=== PATIENT | male | born 1955 | race Caucasian/White ===

== ENCOUNTER 2016-08-18 11:59 | Outpatient (RCR) | payer MEDICAID ==
--- OUTSIDE RECORDS SUMMARY | 2016-05-26 14:13 | XMS REPORT | Continuity of Care Document ---
Author Author [facility] Organization [facility] Address Unknown Phone Unavailable Care Team Providers Care Formulator Compounder Name Role Phone PCP Unavailable Source Comments Some departments are not documenting in the electronic medical record. If you do not see the information that you expected, contact Release of Information in the Health Information Management department at [phone] for further assistance in locating additional records.[facility] Active Allergies and Adverse Reactions Allergen Noted Date Severity Reactions Comments Pcn 10/16/2015 Medium RASH Current Medications Prescription Sig. Disp. Refills Start End Date Status Date dabrafenib (TAFINLAR) 75 Take 150 mg by mouth Active mg capsule twice daily. Take on an empty stomach, at least 1 hour before or 2 hours after food. canagliflozin-metformin Take by mouth. Active 150-1,000 mg tab metFORMIN (GLUCOPHAGE) Take 500 mg by mouth Active 500 mg tablet daily. meloxicam (MOBIC) 15 mg Take by mouth daily. Active tablet atorvastatin (LIPITOR) 20 Take 20 mg by mouth Active mg tablet daily. trametinib 2 mg tab Take 2 mg by mouth daily. Active Take at the same time every day. Active Problems Problem Noted Date Melanoma (HCC) 10/19/2015 Social History Tobacco Use Types Packs/Day Years Used Date Never Smoker Smokeless Tobacco: Never Used Alcohol Use Drinks/Week oz/Week Comments No Last Filed Vital Signs Vital Sign Reading Time Taken Blood Pressure 140/80 10/16/2015 12:47 PM LIFE ENRICHMENT MANAGER Pulse 98 10/16/2015 12:47 PM LIFE ENRICHMENT MANAGER Temperature - - Respiratory Rate - - Height 1.753 m (5' 9") 10/16/2015 12:47 PM LIFE ENRICHMENT MANAGER Weight 77.293 kg (170 lb 6.4 oz) 10/16/2015 12:47 PM LIFE ENRICHMENT MANAGER Body Mass Index 25.15 10/16/2015 12:47 PM LIFE ENRICHMENT MANAGER Oxygen Saturation - - Plan of Care Health Maintenance Due Date Last Done Comments Physical (Comprehensive) 1962 Exam Pertussis Vaccine 1964 Tetanus Vaccine 1970 Colorectal Cancer 10/29/2003 Screening Shingles Vaccine 2013 Influenza Vaccine 04/14/2016 Results from Last 3 Months Not on file
[2016-05-26 14:29] LABS: BASOPHILS % (AUTO) 1 % (0-10); EOSINOPHILS # (AUTO) 0.3 10^3/uL (0.0-0.3); EOSINOPHILS % (AUTO) 4 % (0-10); LYMPHOCYTES # (AUTO) 1.2 X 10^3 (1.0-4.0); LYMPHOCYTES % (AUTO) 17 % (12-44); MEAN CORPUSCULAR HEMOGLOBIN 31 PG (25-34); MEAN CORPUSCULAR HGB CONC 34 G/DL (32-36); MEAN CORPUSCULAR VOLUME 92 FL (80-99); MEAN PLATELET VOLUME 8.2 FL (7.4-10.4); MONOCYTES # (AUTO) 0.9 X 10^3 (0.0-1.0); MONOCYTES % (AUTO) 12 % (0-12); NEUTROPHILS # (AUTO) 4.8 X 10^3 (1.8-7.8); NEUTROPHILS % (AUTO) 67 % (42-75); PLATELET COUNT 294 10^3/uL (130-400); RED BLOOD COUNT 4.63 10^6/uL (4.35-5.85); RED CELL DISTRIBUTION WIDTH 13.8 % (10.0-14.5); WHITE BLOOD COUNT 7.2 10^3/uL (4.3-11.0)
[2016-05-26 15:01] LABS: ALANINE AMINOTRANSFERASE 12 U/L (0-55); ALBUMIN 4.1 G/DL (3.2-4.5); ANION GAP 8 MMOL/L (5-14); ASPARTATE AMINO TRANSFERASE 12 U/L (5-34); BILIRUBIN,TOTAL 0.5 MG/DL (0.1-1.0); BLOOD UREA NITROGEN 15 MG/DL (7-18); BUN/CREATININE RATIO 15; CALCIUM 9.4 MG/DL (8.5-10.1); CARBON DIOXIDE 29 MMOL/L (21-32); CHLORIDE 99 MMOL/L (98-107); CREATININE SERUM 1.03 MG/DL (0.60-1.30); GFR ESTIMATED > 60; GLUCOSE 181 MG/DL (70-105); LACTATE DEHYDROGENASE 150 U/L (125-220); POTASSIUM 4.6 MMOL/L (3.6-5.0); SODIUM 136 MMOL/L (135-145); TOTAL PROTEIN 7.3 G/DL (6.4-8.2)
[2016-07-05 14:22] LABS: BASOPHILS % (AUTO) 1 % (0-10); EOSINOPHILS # (AUTO) 0.1 10^3/uL (0.0-0.3); EOSINOPHILS % (AUTO) 3 % (0-10); LYMPHOCYTES # (AUTO) 0.9 X 10^3 (1.0-4.0); LYMPHOCYTES % (AUTO) 19 % (12-44); MEAN CORPUSCULAR HEMOGLOBIN 32 PG (25-34); MEAN CORPUSCULAR HGB CONC 34 G/DL (32-36); MEAN CORPUSCULAR VOLUME 93 FL (80-99); MEAN PLATELET VOLUME 8.7 FL (7.4-10.4); MONOCYTES # (AUTO) 0.7 X 10^3 (0.0-1.0); MONOCYTES % (AUTO) 15 % (0-12); NEUTROPHILS % (AUTO) 63 % (42-75); PLATELET COUNT 191 10^3/uL (130-400); RED BLOOD COUNT 4.64 10^6/uL (4.35-5.85); RED CELL DISTRIBUTION WIDTH 13.6 % (10.0-14.5); WHITE BLOOD COUNT 4.7 10^3/uL (4.3-11.0)
[2016-07-05 15:17] LABS: ALANINE AMINOTRANSFERASE 15 U/L (0-55); ANION GAP 6 MMOL/L (5-14); ASPARTATE AMINO TRANSFERASE 28 U/L (5-34); BILIRUBIN,TOTAL 0.5 MG/DL (0.1-1.0); BLOOD UREA NITROGEN 17 MG/DL (7-18); BUN/CREATININE RATIO 15; CALCIUM 9.9 MG/DL (8.5-10.1); CARBON DIOXIDE 29 MMOL/L (21-32); CHLORIDE 102 MMOL/L (98-107); CREATININE SERUM 1.17 MG/DL (0.60-1.30); GFR ESTIMATED > 60; GLUCOSE 175 MG/DL (70-105); LACTATE DEHYDROGENASE 312 U/L (125-220); POTASSIUM 4.8 MMOL/L (3.6-5.0); SODIUM 137 MMOL/L (135-145); TOTAL PROTEIN 7.1 G/DL (6.4-8.2)
[~2016-08-18 11:59] MED LIST changes: -ATOR20TA66 PO; -BARIUM SUSPENSION 2.1% (VANILLA SILQ) 450 ML PO ONE; -CANA1TAB4 PO; -CATHETER FLUSH 10 ML SYR IV PRN; -FLUT9.9S NS; -GLIP10TA13 PO; -HEParin (CENTRAL IV FLUSH) 500 UNIT/5 ML SYR ONE; -IOHEXOL 350 MG/ML 100 ML (OMNIPAQUE 350) VIAL IV ONE; -MELO15TA39 PO; -METF500T4 PO; -NS 100 ML (IVPB) BAG IV ONE; -TRAM50TA2 PO
[2016-08-18 12:26] LABS: BASOPHILS % (AUTO) 1 % (0-10); EOSINOPHILS # (AUTO) 0.1 10^3/uL (0.0-0.3); EOSINOPHILS % (AUTO) 2 % (0-10); LYMPHOCYTES % (AUTO) 16 % (12-44); MEAN CORPUSCULAR HEMOGLOBIN 32 PG (25-34); MEAN CORPUSCULAR HGB CONC 35 G/DL (32-36); MEAN CORPUSCULAR VOLUME 93 FL (80-99); MEAN PLATELET VOLUME 8.2 FL (7.4-10.4); MONOCYTES % (AUTO) 16 % (0-12); NEUTROPHILS % (AUTO) 65 % (42-75); PLATELET COUNT 275 10^3/uL (130-400); RED BLOOD COUNT 4.75 10^6/uL (4.35-5.85); RED CELL DISTRIBUTION WIDTH 13.7 % (10.0-14.5); WHITE BLOOD COUNT 6.1 10^3/uL (4.3-11.0)
[2016-08-18 12:57] LABS: ALANINE AMINOTRANSFERASE 17 U/L (0-55); ALBUMIN 4.2 G/DL (3.2-4.5); ANION GAP 8 MMOL/L (5-14); ASPARTATE AMINO TRANSFERASE 20 U/L (5-34); BILIRUBIN,TOTAL 0.5 MG/DL (0.1-1.0); BLOOD UREA NITROGEN 16 MG/DL (7-18); BUN/CREATININE RATIO 14; CALCIUM 9.9 MG/DL (8.5-10.1); CARBON DIOXIDE 26 MMOL/L (21-32); CHLORIDE 102 MMOL/L (98-107); CREATININE SERUM 1.16 MG/DL (0.60-1.30); GFR ESTIMATED > 60; GLUCOSE 178 MG/DL (70-105); LACTATE DEHYDROGENASE 180 U/L (125-220); POTASSIUM 5.1 MMOL/L (3.6-5.0); SODIUM 136 MMOL/L (135-145); TOTAL PROTEIN 7.2 G/DL (6.4-8.2)
[2016-12-02] MEDS ORDERED: TRAM50TA2 PO (08:20)
== END 2016-08-24 | disposition home or self-care (01) ==
LOC: ONC 11:59
PROVIDERS: ATTEND Internal Medicine Hematology & Oncology
DX: C43.59 Malignant melanoma of other part of trunk (principal); C78.7 Secondary malignant neoplasm of liver and intrahepatic bile duct; C77.9 Secondary and unspecified malignant neoplasm of lymph node, unspecified; Z79.899 Other long term (current) drug therapy
CPT/HCPCS: 36415; 80053; 83615; 85025; 99213

== ENCOUNTER → 2016-08-18 | Outpatient (CLI) | payer MEDICAID ==
[~2016-08-18] MED LIST: ASPI-587 PO; ATOR20TA66 PO; BARIUM SUSPENSION 2.1% (VANILLA SILQ) 450 ML PO ONE; CANA1TAB4 PO; CATHETER FLUSH 10 ML SYR IV PRN; CPR500T PO; FLUT9.9S NS; GLIP10TA13 PO; HEParin (CENTRAL IV FLUSH) 500 UNIT/5 ML SYR ONE; HYDR-34 PO; IBUP200T48 PO; IOHEXOL 350 MG/ML 100 ML (OMNIPAQUE 350) VIAL IV ONE; MELO15TA39 PO; METF500T4 PO; NS 100 ML (IVPB) BAG IV ONE; OXYC1TAB87 PO; TRAM50TA2 PO
--- OUTSIDE RECORDS SUMMARY | 2016-08-18 12:48 | XMS REPORT | Continuity of Care Document ---
Author Author [facility] Organization [facility] Address Unknown Phone Unavailable Care Team Providers Care Refrigerator Glazier Name Role Phone PCP Unavailable Source Comments Some departments are not documenting in the electronic medical record. 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 TRUCK OPERATOR Pulse 98 10/16/2015 12:47 PM TOW TRUCK OPERATOR Temperature - - Respiratory Rate - - Height 1.753 m (5' 9") 10/16/2015 12:47 PM TOW TRUCK OPERATOR Weight 77.293 kg (170 lb 6.4 oz) 10/16/2015 12:47 PM TOW TRUCK OPERATOR Body Mass Index 25.15 10/16/2015 12:47 PM TOW TRUCK OPERATOR Oxygen Saturation - - Plan of Care Health Maintenance Due Date Last Done Comments Hepatitis C Screening 1955 Physical (Comprehensive) 1960 Exam Pertussis Vaccine 1964 Tetanus Vaccine 1970 Colorectal Cancer 10/29/2003 Screening Shingles Vaccine 2013 Influenza Vaccine 04/14/2016 Results from Last 3 Months Not on file
--- NOTE | 2016-08-18 14:31 | Diagnostic Imaging Report ---
PROCEDURE: CT chest and abdomen with contrast. TECHNIQUE: Multiple contiguous axial images were obtained through the chest and abdomen after the administration of intravenous contrast. INDICATION: History of melanoma. Exam compared 02/23/2016. FINDINGS: Chest: There is no lung nodule. There is no thoracic adenopathy. No infiltrate, effusion or failure pattern. No acute or suspicious soft tissue or osseous chest wall disease. No change. Abdomen: The liver is stable and negative. The gallbladder and bile ducts normal. The spleen, adrenals, pancreas unremarkable. The kidneys showed a stable benign unilocular Bosniak I left renal cortical cyst and no obstruction or acute finding. There is no mesenteric or retroperitoneal adenopathy. There are no obstructive features. No ascites or fluid collection. There is no suspicious osseous disease. IMPRESSION: Stable CT evaluations chest and abdomen showed no acute finding or evidence for metastasis. Dictated by: Dictated on workstation # [id number]
--- NOTE | 2016-08-18 15:42 | Diagnostic Imaging Report ---
MUGA scan Technique: After the intravenous administration of 29.8 mCi of technetium 99m tagged red blood cells intravenously, images are obtained over the cardiac region in left lateral, anterior and ALGERIAN and VEGA views. Indication: Evaluate ejection fraction. Cardiotoxic chemotherapy , for melanoma. FINDINGS: Area of interest around the left ventricle is drawn and the ejection fraction is estimated based on radiotracer activity at 59%. This compares to ejection fraction of 56% on 02/23/16. IMPRESSION: Ejection fraction is 59%. Dictated by: Dictated on workstation # [id number]
== END ==
LOC: RAD 12:45
PROVIDERS: ATTEND Nurse Practitioner Adult Health
DX: C43.59 Malignant melanoma of other part of trunk (principal); C77.8 Secondary and unspecified malignant neoplasm of lymph nodes of multiple regions; C79.89 Secondary malignant neoplasm of other specified sites; C78.7 Secondary malignant neoplasm of liver and intrahepatic bile duct
CPT/HCPCS: 71260; 74160; 78472

== ENCOUNTER 2016-10-24 14:41 | Outpatient (RCR) | payer MEDICAID ==
--- OUTSIDE RECORDS SUMMARY | 2016-08-31 12:59 | XMS REPORT | Continuity of Care Document ---
Author Author [facility] Organization [facility] Address Unknown Phone Unavailable Care Team Providers Care Hand Stapler Name Role Phone PCP Unavailable Source Comments Some departments are not documenting in the electronic medical record. If you do not see the information that you expected, contact Release of Information in the Health Information Management department at [phone] for further assistance in locating additional records.[facility] Active Allergies and Adverse Reactions Allergen Noted [...] Taken Blood Pressure 140/80 10/16/2015 12:47 PM GOLF BALL MOLDER Pulse 98 10/16/2015 12:47 PM GOLF BALL MOLDER Temperature - - Respiratory Rate - - Height 1.753 m (5' 9") 10/16/2015 12:47 PM GOLF BALL MOLDER Weight 77.293 kg (170 lb 6.4 oz) 10/16/2015 12:47 PM GOLF BALL MOLDER Body Mass Index 25.15 10/16/2015 12:47 PM GOLF BALL MOLDER Oxygen Saturation - - Plan of Care Health Maintenance Due Date Last Done Comments Hepatitis C Screening 1955 Physical (Comprehensive) 1960 Exam Pertussis Vaccine 1964 Tetanus Vaccine 1970 Colorectal Cancer 10/29/2003 Screening Shingles Vaccine 2013 Influenza Vaccine 04/14/2016 Results from Last 3 Months Not on file
[2016-10-24 14:56] LABS: BASOPHILS % (AUTO) 1 % (0-10); EOSINOPHILS # (AUTO) 0.3 10^3/uL (0.0-0.3); EOSINOPHILS % (AUTO) 5 % (0-10); LYMPHOCYTES # (AUTO) 1.4 X 10^3 (1.0-4.0); LYMPHOCYTES % (AUTO) 24 % (12-44); MEAN CORPUSCULAR HEMOGLOBIN 32 PG (25-34); MEAN CORPUSCULAR HGB CONC 34 G/DL (32-36); MEAN CORPUSCULAR VOLUME 93 FL (80-99); MEAN PLATELET VOLUME 8.1 FL (7.4-10.4); MONOCYTES # (AUTO) 0.8 X 10^3 (0.0-1.0); MONOCYTES % (AUTO) 13 % (0-12); NEUTROPHILS # (AUTO) 3.3 X 10^3 (1.8-7.8); NEUTROPHILS % (AUTO) 58 % (42-75); PLATELET COUNT 225 10^3/uL (130-400); RED BLOOD COUNT 4.27 10^6/uL (4.35-5.85); WHITE BLOOD COUNT 5.7 10^3/uL (4.3-11.0)
[2016-10-24 15:29] LABS: ALANINE AMINOTRANSFERASE 20 U/L (0-55); ALBUMIN 3.8 G/DL (3.2-4.5); ANION GAP 9 MMOL/L (5-14); ASPARTATE AMINO TRANSFERASE 20 U/L (5-34); BILIRUBIN,TOTAL 0.4 MG/DL (0.1-1.0); BLOOD UREA NITROGEN 16 MG/DL (7-18); BUN/CREATININE RATIO 14; CALCIUM 9.5 MG/DL (8.5-10.1); CARBON DIOXIDE 25 MMOL/L (21-32); CHLORIDE 103 MMOL/L (98-107); CREATININE SERUM 1.11 MG/DL (0.60-1.30); GFR ESTIMATED > 60; GLUCOSE 137 MG/DL (70-105); LACTATE DEHYDROGENASE 185 U/L (125-220); POTASSIUM 4.8 MMOL/L (3.6-5.0); SODIUM 137 MMOL/L (135-145); TOTAL PROTEIN 6.7 G/DL (6.4-8.2)
[2016-11-28] MEDS ORDERED: CANA1TAB4 PO (15:14)
[2016-11-28] MEDS ORDERED: FLUT9.9S NS (15:14)
[2016-11-28] MEDS ORDERED: MELO15TA39 PO (15:14)
[2016-11-28] MEDS ORDERED: METF500T4 PO (15:14)
[2016-11-28] MEDS ORDERED: ATOR20TA66 PO (15:14)
[2016-11-28] MEDS ORDERED: GLIP10TA13 PO (15:14)
[2016-12-02] MEDS ORDERED: TRAM50TA2 PO (08:20)
== END 2016-11-29 | disposition home or self-care (01) ==
LOC: ONC 14:41
PROVIDERS: ATTEND Internal Medicine Hematology & Oncology
DX: C43.59 Malignant melanoma of other part of trunk (principal); C78.7 Secondary malignant neoplasm of liver and intrahepatic bile duct; C77.9 Secondary and unspecified malignant neoplasm of lymph node, unspecified; Z79.899 Other long term (current) drug therapy
CPT/HCPCS: 36415; 80053; 83615; 85025; 99213

== ENCOUNTER → 2016-11-25 | Outpatient (CLI) | payer MEDICAID ==
[~2016-11-25] VITALS: Ht 175.3 cm; Wt 74.9 kg
[~2016-11-25] MED LIST changes: +ATOR20TA66 PO; +CANA1TAB4 PO; +FLUT9.9S NS; +GLIP10TA13 PO; +MELO15TA39 PO; +METF500T4 PO; +TRAM50TA2 PO
== END ==
LOC: PREOP 05:34
PROVIDERS: ATTEND Surgery
DX: Z01.818 Encounter for other preprocedural examination (principal); L98.9 Disorder of the skin and subcutaneous tissue, unspecified; Z85.820 Personal history of malignant melanoma of skin

== ENCOUNTER 2016-12-02 06:11 | Day surgery (SDC) | payer MEDICAID ==
[~2016-12-02] VITALS: Ht 175.3 cm; Wt 74.9 kg
[~2016-12-02 06:11] MED LIST changes: -TRAM50TA2 PO
[2016-12-02] MEDS ORDERED: VANCOMYCIN 1000 MG/VIAL ONE (06:37)
[2016-12-02] MEDS ORDERED: NS (IVPB) 250 ML ONE (06:37)
[2016-12-02] MEDS ORDERED: LACTATED RINGERS 1,000 ML IV PRN (06:40)
[2016-12-02] MEDS ORDERED: CATHETER FLUSH 10 ML SYR IV PRN (07:00)
[2016-12-02] MEDS ORDERED: VANCOMYCIN 1 GM/NS 250 ML IVPB IV ONE ×2 (07:00)
[2016-12-02 07:09] VITALS: BP 108/104
[2016-12-02] MEDS ORDERED: BUP/EPI 0.25% 1:200,000 (MARCAINE) 30 ML VIAL ONE (07:09)
--- NOTE | 2016-12-02 07:34 | Progress Note-Pre Operative ---
Pre-Operative Progress Note H&P Reviewed The H&P was reviewed, patient examined and no changes noted. Date H&P Reviewed: Dec 02, 2016 Time H&P Reviewed: 07:34 Pre-Operative Diagnosis: Skin lesion-right infraclavicular region JESSICA AMBROSE MD Dec 02, 2016 7:34 am
[2016-12-02] MEDS ORDERED: PROPOFOL INJECTION 50 ML IV ONE ×2 (07:35→08:38)
[2016-12-02] MEDS ORDERED: MIDAZOLAM 2 MG/2 ML (VERSED) VIAL ONE (07:36)
--- NOTE | 2016-12-02 08:19 | Progress Note-Post Operative ---
Post-Operative Progess Note Surgeon (s)/Fire Apparatus Engineer (s) Surgeon JESSICA AMBROSE MD Fire Apparatus Engineer: Whit Torres Pre-Operative Diagnosis Skin lesion-right infraclavicular region Post-Operative Diagnosis Same Post-Op Procedure Note Date of Procedure: Dec 02, 2016 Name of Procedure Performed: Excision with frozen section Description of the Procedure: See operative report Findings of the Procedure See operative report Anesthesia Type Sedation with local Estimated blood loss (mL): Minimal Specimen(s) collected/removed Skin lesion JESSICA AMBROSE MD Dec 02, 2016 8:19 am
[2016-12-02] MEDS ORDERED: TRAM50TA2 PO (08:20)
--- NOTE | 2016-12-02 08:22 | Discharge Inst-Simple/Standard ---
Discharge Inst-Standard Discharge Medications New, Converted or Re-Newed RX: RX on Chart Patient Instructions/Follow Up Plan of Care/Instructions/FU: Dressing off in 48 hours. Follow-up with my nurse in 10 days for suture removal Activity as Tolerated: Yes Discharge Diet: No Restrictions JESSICA AMBROSE MD Dec 02, 2016 8:22 am
[2016-12-02] MEDS ORDERED: BUP/EPI 0.25% 1:200,000 (MARCAINE) 30 ML VIAL INJ ONE (08:30)
[2016-12-02] MEDS ORDERED: LACTATED RINGERS 1,000 ML IV ONE (08:38)
[2016-12-02] MEDS ORDERED: GLYCOPYRROLATE 0.2 MG/ML (ROBINUL) 2 ML VIAL ONE (08:39)
[2016-12-02 09:15] VITALS: BP 144/89
[2016-12-02 09:45] VITALS: BP 159/91
[2016-12-02 10:35] VITALS: BP 159/91
--- NOTE | 2016-12-02 15:55 | OPERATIVE REPORT ---
DATE OF SERVICE: 12/02/2016 PREOPERATIVE DIAGNOSIS: A 2 cm skin lesion - right infraclavicular fossa. POSTOPERATIVE DIAGNOSIS: A 2 cm nodular basal cell carcinoma, right infraclavicular region. OPERATION: Excision with frozen section. SURGEON: Dr. Ambrose. ANESTHESIA: Sedation with local. BLOOD LOSS: Minimal. FLUIDS: 400 mL of Crystalloid. TYPE OF WOUND: Type 1 (clean wound). INDICATION FOR PROCEDURE: This gentleman presented with a raised and ulcerated lesion over the right infraclavicular fossa, measuring about 2 cm in diameter, having the appearance of a basal cell carcinoma. He was offered excision under monitored conditions under local anesthetic to establish a definitive diagnosis and ensure negative margins, should carcinoma be confirmed. Informed consent was obtained after reviewing the procedure in detail. DESCRIPTION OF PROCEDURE: He was placed supine on the operating room tablet and CRN administered sedation, monitoring his vital signs. There was 1 gram of Vancomycin administered intravenously as prophylaxis against wound infection. The area was prepared and draped in the usual sterile manner. Local anesthesia was achieved using 0.25% Marcaine with epinephrine. An elliptical incision 4 cm long x 3 cm wide was made over the right infraclavicular fossa and the lesion excised down to the subcutaneous tissue. It was oriented with silk sutures and sent for frozen section analysis. ____ , our pathologist, confirmed a basal cell carcinoma with negative margins. Hemostasis was achieved using cautery and the edges of the incision were approximated with interrupted 4-0 nylon sutures. A nonadherent dressing was then applied. He tolerated the procedure well and was taken back to a nursing area in stable condition. [place], sponges and instruments were correct at the end of the operation. Job ID: [id number] DocumentID: [id number] Dictated Date: 12/02/2016 08:44:15 Secondary School Teacher Date: 12/02/2016 09:17:55 Dictated By: JESSICA AMBROSE MD
== END 2016-12-02 10:35 | disposition home or self-care (01) ==
LOC: SDC 06:11
PROVIDERS: ATTEND Surgery
DX: C44.519 Basal cell carcinoma of skin of other part of trunk (principal); E11.9 Type 2 diabetes mellitus without complications; Z79.84 Long term (current) use of oral hypoglycemic drugs
CPT/HCPCS: 82962; 87081; 88305; 88331; 88332

== ENCOUNTER → 2017-02-10 | Outpatient (CLI) | payer MEDICAID ==
[~2017-02-10] MED LIST changes: +TRAM50TA2 PO
[2017-02-10 14:53] LABS: THYROID STIMULATING HORMONE 1.92 UIU/ML (0.35-4.94)
== END ==
LOC: LAB 13:46
PROVIDERS: ATTEND Nurse Practitioner Family
DX: R53.83 Other fatigue (principal); E78.5 Hyperlipidemia, unspecified; E11.9 Type 2 diabetes mellitus without complications; N40.0 Benign prostatic hyperplasia without lower urinary tract symptoms
CPT/HCPCS: 36415; 80061; 83036; 84153; 84443

== ENCOUNTER → 2017-02-16 | Outpatient (CLI) | payer MEDICAID ==
[~2017-02-16] MED LIST changes: +CATHETER FLUSH 10 ML SYR IV PRN; +HEParin (CENTRAL IV FLUSH) 500 UNIT/5 ML SYR ONE; +IOHEXOL 350 MG/ML 100 ML (OMNIPAQUE 350) VIAL IV ONE; +NS 100 ML (IVPB) BAG IV ONE
--- NOTE | 2017-02-16 15:17 | Diagnostic Imaging Report ---
MUGA scan Technique: After the intravenous administration of 32 mCi of technetium 99m tagged red blood cells intravenously, images are obtained over the cardiac region in left lateral, anterior and MOHAWK and VEGA views. Indication: Evaluate ejection fraction. Cardiotoxic chemotherapy . Melanoma. FINDINGS: Area of interest around the left ventricle is drawn and the ejection fraction is estimated based on radiotracer activity at 55%. This compares to ejection fraction of 59% on 08/18/2016 IMPRESSION: Ejection fraction is 55%. Dictated by: Dictated on workstation # [id number]
--- NOTE | 2017-02-16 16:03 | Diagnostic Imaging Report ---
PROCEDURE: CT chest and abdomen with contrast. TECHNIQUE: Multiple contiguous axial images were obtained through the chest and abdomen after the administration of intravenous contrast. INDICATION: Melanoma. 100 mL of Omnipaque 350 is administered intravenously. COMPARISON: 08/18/2016. FINDINGS: CT chest: The lungs demonstrate no significant consolidation, mass, or suspicious nodule. The heart size is normal. The thoracic aorta is normal in caliber. There is no mediastinal mass. No lymphadenopathy in the mediastinum, augusto, or in the axillae. No pericardial or pleural effusion. The osseous structures demonstrate mild degenerative change in the lower thoracic spine. CT abdomen: The liver, the spleen, the adrenal glands, and the pancreas appear unremarkable. The gallbladder is mildly contracted with no calcified stone or evidence of cholecystitis. The kidneys have symmetric enhancement. There is a simple appearing 5.2 cm left renal cyst. No solid renal mass. The abdominal aorta is normal in caliber. No para-aortic significantly enlarged lymph node is seen. Tiny fat-containing umbilical hernia is noted. The appendix is partially visualized and appears normal in the visualized levels within the abdomen, and no obvious bowel-related abnormality is also seen in the abdomen. The lumbar spine demonstrates no significant mass or destructive lesion. IMPRESSION: CT chest: Unremarkable exam. CT abdomen: Small fat-containing umbilical hernia. No evidence of metastasis. Dictated by: Dictated on workstation # [id number]
== END ==
LOC: CARD 13:52
PROVIDERS: ATTEND Nurse Practitioner Adult Health
DX: C43.59 Malignant melanoma of other part of trunk (principal); C77.8 Secondary and unspecified malignant neoplasm of lymph nodes of multiple regions; C79.89 Secondary malignant neoplasm of other specified sites
CPT/HCPCS: 71260; 74160; 78472

== ENCOUNTER 2017-02-23 13:29 | Outpatient (RCR) | payer MEDICAID ==
[2016-12-26 14:25] LABS: BASOPHILS % (AUTO) 1 % (0-10); EOSINOPHILS # (AUTO) 0.3 10^3/uL (0.0-0.3); EOSINOPHILS % (AUTO) 3 % (0-10); LYMPHOCYTES # (AUTO) 1.4 X 10^3 (1.0-4.0); LYMPHOCYTES % (AUTO) 18 % (12-44); MEAN CORPUSCULAR HEMOGLOBIN 32 PG (25-34); MEAN CORPUSCULAR HGB CONC 34 G/DL (32-36); MEAN CORPUSCULAR VOLUME 94 FL (80-99); MEAN PLATELET VOLUME 8.6 FL (7.4-10.4); MONOCYTES # (AUTO) 0.9 X 10^3 (0.0-1.0); MONOCYTES % (AUTO) 11 % (0-12); NEUTROPHILS # (AUTO) 5.3 X 10^3 (1.8-7.8); NEUTROPHILS % (AUTO) 67 % (42-75); PLATELET COUNT 304 10^3/uL (130-400); RED BLOOD COUNT 4.49 10^6/uL (4.35-5.85); RED CELL DISTRIBUTION WIDTH 13.8 % (10.0-14.5); WHITE BLOOD COUNT 7.9 10^3/uL (4.3-11.0)
[2016-12-26 16:16] LABS: ALBUMIN 4.2 G/DL (3.2-4.5); BILIRUBIN,TOTAL 0.5 MG/DL (0.1-1.0); CALCIUM 10.2 MG/DL (8.5-10.1); CREATININE SERUM 1.35 MG/DL (0.60-1.30); POTASSIUM 4.5 MMOL/L (3.6-5.0); TOTAL PROTEIN 7.1 G/DL (6.4-8.2)
[2017-02-10 14:03] LABS: BASOPHILS # (AUTO) 0.1 10^3/uL (0.0-0.1); BASOPHILS % (AUTO) 1 % (0-10); EOSINOPHILS # (AUTO) 0.3 10^3/uL (0.0-0.3); EOSINOPHILS % (AUTO) 4 % (0-10); LYMPHOCYTES % (AUTO) 25 % (12-44); MEAN CORPUSCULAR HEMOGLOBIN 32 PG (25-34); MEAN CORPUSCULAR HGB CONC 34 G/DL (32-36); MEAN CORPUSCULAR VOLUME 94 FL (80-99); MEAN PLATELET VOLUME 8.7 FL (7.4-10.4); MONOCYTES % (AUTO) 13 % (0-12); NEUTROPHILS # (AUTO) 4.7 X 10^3 (1.8-7.8); NEUTROPHILS % (AUTO) 58 % (42-75); PLATELET COUNT 331 10^3/uL (130-400); RED BLOOD COUNT 4.75 10^6/uL (4.35-5.85); RED CELL DISTRIBUTION WIDTH 13.4 % (10.0-14.5); WHITE BLOOD COUNT 8.1 10^3/uL (4.3-11.0)
[2017-02-10 14:30] LABS: ALBUMIN 4.1 GM/DL (3.2-4.5); BILIRUBIN,TOTAL 0.5 MG/DL (0.1-1.0); CALCIUM 10.1 MG/DL (8.5-10.1); CREATININE SERUM 1.26 MG/DL (0.60-1.30); POTASSIUM 5.1 MMOL/L (3.6-5.0); TOTAL PROTEIN 7.6 GM/DL (6.4-8.2)
[~2017-02-23 13:29] MED LIST changes: -CATHETER FLUSH 10 ML SYR IV PRN; -HEParin (CENTRAL IV FLUSH) 500 UNIT/5 ML SYR ONE; -IOHEXOL 350 MG/ML 100 ML (OMNIPAQUE 350) VIAL IV ONE; -NS 100 ML (IVPB) BAG IV ONE
== END 2017-03-26 | disposition home or self-care (01) ==
LOC: ONC 13:29
PROVIDERS: ATTEND Internal Medicine Hematology & Oncology
DX: C43.59 Malignant melanoma of other part of trunk (principal); C78.7 Secondary malignant neoplasm of liver and intrahepatic bile duct; C77.9 Secondary and unspecified malignant neoplasm of lymph node, unspecified; Z79.899 Other long term (current) drug therapy; C77.8 Secondary and unspecified malignant neoplasm of lymph nodes of multiple regions; C79.89 Secondary malignant neoplasm of other specified sites
CPT/HCPCS: 36415; 80053; 83615; 85025; 99213

== ENCOUNTER 2017-05-03 13:42 | Outpatient (RCR) | payer MEDICAID ==
[2017-05-03 13:57] LABS: BASOPHILS % (AUTO) 1 % (0-10); EOSINOPHILS # (AUTO) 0.4 10^3/uL (0.0-0.3); EOSINOPHILS % (AUTO) 6 % (0-10); LYMPHOCYTES # (AUTO) 1.7 X 10^3 (1.0-4.0); LYMPHOCYTES % (AUTO) 22 % (12-44); MEAN CORPUSCULAR HEMOGLOBIN 32 PG (25-34); MEAN CORPUSCULAR HGB CONC 34 G/DL (32-36); MEAN CORPUSCULAR VOLUME 94 FL (80-99); MEAN PLATELET VOLUME 8.6 FL (7.4-10.4); MONOCYTES # (AUTO) 0.7 X 10^3 (0.0-1.0); MONOCYTES % (AUTO) 10 % (0-12); NEUTROPHILS # (AUTO) 4.8 X 10^3 (1.8-7.8); NEUTROPHILS % (AUTO) 63 % (42-75); PLATELET COUNT 266 10^3/uL (130-400); RED BLOOD COUNT 4.69 10^6/uL (4.35-5.85); RED CELL DISTRIBUTION WIDTH 13.4 % (10.0-14.5); WHITE BLOOD COUNT 7.6 10^3/uL (4.3-11.0)
[2017-05-03 14:24] LABS: BILIRUBIN,TOTAL 0.6 MG/DL (0.1-1.0); CREATININE SERUM 1.38 MG/DL (0.60-1.30); TOTAL PROTEIN 7.1 GM/DL (6.4-8.2)
== END 2017-05-13 | disposition home or self-care (01) ==
LOC: ONC 13:42
PROVIDERS: ATTEND Internal Medicine Hematology & Oncology
DX: C43.59 Malignant melanoma of other part of trunk (principal); C78.7 Secondary malignant neoplasm of liver and intrahepatic bile duct; C77.9 Secondary and unspecified malignant neoplasm of lymph node, unspecified; Z79.899 Other long term (current) drug therapy; C77.8 Secondary and unspecified malignant neoplasm of lymph nodes of multiple regions; C79.89 Secondary malignant neoplasm of other specified sites
CPT/HCPCS: 36415; 80053; 83615; 85025; 99213

== ENCOUNTER → 2017-08-22 | Outpatient (CLI) | payer MEDICAID ==
[~2017-08-22] MED LIST changes: +CATHETER FLUSH 10 ML SYR IV PRN
--- NOTE | 2017-08-22 15:21 | Diagnostic Imaging Report ---
INDICATION: Melanoma, chemotherapy. TECHNIQUE: After the intravenous administration of 32.1 mCi of technetium 99m tagged red blood cells intravenously, images were obtained over the cardiac region in left lateral, anterior ROMANIAN, and VEGA views. FINDINGS: The left ventricular ejection fraction is estimated at 53%, previously 55%. IMPRESSION: 53% left ventricular ejection fraction. Dictated by: Dictated on workstation # [id number]
== END ==
LOC: CARD 13:16
PROVIDERS: ATTEND Internal Medicine Hematology & Oncology
DX: Z51.81 Encounter for therapeutic drug level monitoring (principal); C43.59 Malignant melanoma of other part of trunk; C77.8 Secondary and unspecified malignant neoplasm of lymph nodes of multiple regions; C79.89 Secondary malignant neoplasm of other specified sites; C78.7 Secondary malignant neoplasm of liver and intrahepatic bile duct; Z79.899 Other long term (current) drug therapy
CPT/HCPCS: 78472

== ENCOUNTER 2017-08-29 13:51 | Outpatient (RCR) | payer MEDICAID ==
[2017-07-04 14:29] LABS: BASOPHILS % (AUTO) 1 % (0-10); EOSINOPHILS # (AUTO) 0.3 10^3/uL (0.0-0.3); EOSINOPHILS % (AUTO) 4 % (0-10); HEMATOCRIT 43 % (40-54); HEMOGLOBIN 14.7 G/DL (13.3-17.7); LYMPHOCYTES # (AUTO) 1.9 X 10^3 (1.0-4.0); LYMPHOCYTES % (AUTO) 26 % (12-44); MEAN CORPUSCULAR HEMOGLOBIN 32 PG (25-34); MEAN CORPUSCULAR HGB CONC 34 G/DL (32-36); MEAN CORPUSCULAR VOLUME 93 FL (80-99); MEAN PLATELET VOLUME 8.8 FL (7.4-10.4); MONOCYTES # (AUTO) 0.9 X 10^3 (0.0-1.0); MONOCYTES % (AUTO) 12 % (0-12); NEUTROPHILS # (AUTO) 4.2 X 10^3 (1.8-7.8); NEUTROPHILS % (AUTO) 57 % (42-75); PLATELET COUNT 243 10^3/uL (130-400); RED BLOOD COUNT 4.61 10^6/uL (4.35-5.85); RED CELL DISTRIBUTION WIDTH 12.8 % (10.0-14.5); WHITE BLOOD COUNT 7.3 10^3/uL (4.3-11.0)
[2017-07-04 14:42] LABS: ALBUMIN 3.8 GM/DL (3.2-4.5); BILIRUBIN,TOTAL 0.6 MG/DL (0.1-1.0); CALCIUM 10.3 MG/DL (8.5-10.1); CREATININE SERUM 1.25 MG/DL (0.60-1.30); POTASSIUM 4.4 MMOL/L (3.6-5.0)
[2017-08-22 13:12] LABS: BASOPHILS # (AUTO) 0.1 10^3/uL (0.0-0.1); BASOPHILS % (AUTO) 1 % (0-10); EOSINOPHILS # (AUTO) 0.4 10^3/uL (0.0-0.3); EOSINOPHILS % (AUTO) 5 % (0-10); HEMATOCRIT 43 % (40-54); HEMOGLOBIN 15.7 G/DL (13.3-17.7); LYMPHOCYTES # (AUTO) 1.9 X 10^3 (1.0-4.0); LYMPHOCYTES % (AUTO) 25 % (12-44); MEAN CORPUSCULAR HEMOGLOBIN 32 PG (25-34); MEAN CORPUSCULAR HGB CONC 36 G/DL (32-36); MEAN CORPUSCULAR VOLUME 89 FL (80-99); MEAN PLATELET VOLUME 9.4 FL (7.4-10.4); MONOCYTES # (AUTO) 0.9 X 10^3 (0.0-1.0); MONOCYTES % (AUTO) 11 % (0-12); NEUTROPHILS # (AUTO) 4.5 X 10^3 (1.8-7.8); NEUTROPHILS % (AUTO) 58 % (42-75); PLATELET COUNT 284 10^3/uL (130-400); RED BLOOD COUNT 4.87 10^6/uL (4.35-5.85); RED CELL DISTRIBUTION WIDTH 12.3 % (10.0-14.5); WHITE BLOOD COUNT 7.7 10^3/uL (4.3-11.0)
[2017-08-22 13:34] LABS: ALBUMIN 3.9 GM/DL (3.2-4.5); BILIRUBIN,TOTAL 0.8 MG/DL (0.1-1.0); CALCIUM 9.8 MG/DL (8.5-10.1); CREATININE SERUM 1.33 MG/DL (0.60-1.30)
[~2017-08-29 13:51] MED LIST changes: -CATHETER FLUSH 10 ML SYR IV PRN; +inSUlin (REGULAR) HUMAN 1 UNIT/0.01 ML DOSE CANCER CTR SC ONE
== END 2017-10-02 | disposition home or self-care (01) ==
LOC: ONC 13:51
PROVIDERS: ATTEND Internal Medicine Hematology & Oncology
DX: C43.59 Malignant melanoma of other part of trunk (principal); C78.7 Secondary malignant neoplasm of liver and intrahepatic bile duct; C77.8 Secondary and unspecified malignant neoplasm of lymph nodes of multiple regions; C79.89 Secondary malignant neoplasm of other specified sites; E11.9 Type 2 diabetes mellitus without complications; E83.52 Hypercalcemia; R42 Dizziness and giddiness; Z79.82 Long term (current) use of aspirin; Z79.84 Long term (current) use of oral hypoglycemic drugs; Z79.899 Other long term (current) drug therapy
CPT/HCPCS: 36415; 80053; 83615; 85025; 96372; 99213

== ENCOUNTER → 2017-12-14 | Outpatient (CLI) | payer MEDICAID ==
[~2017-12-14] MED LIST changes: +BARIUM SUSPENSION 2.1% (VANILLA SILQ) 450 ML PO ONE; +HEParin (CENTRAL IV FLUSH) 500 UNIT/5 ML SYR ONE; +IOHEXOL 350 MG/ML 100 ML (OMNIPAQUE 350) VIAL IV ONE; -METF500T4 PO; +METF500T5 PO; +NS 250 ML (IVPB) BAG IV ONE; -inSUlin (REGULAR) HUMAN 1 UNIT/0.01 ML DOSE CANCER CTR SC ONE
[2017-12-14] MEDS: CATHETER FLUSH 10 ML SYR IV PRN ×2 (13:17→13:23)
--- NOTE | 2017-12-14 14:38 | Diagnostic Imaging Report ---
PROCEDURE: CT chest with contrast, CT abdomen and pelvis with and without contrast. TECHNIQUE: Pre and post intravenous contrast axial imaging of the abdomen and pelvis and post contrast axial imaging of the chest were performed. INDICATION: Malignant melanoma of the trunk. Study is performed for followup. COMPARISON: Comparison is made with prior CT chest and abdomen from 08/22/2017. FINDINGS: CT chest: No axillary lymphadenopathy is identified. Small right paratracheal lymph nodes appear stable to perhaps slightly smaller. A lymph node at the level of the robert demonstrates short axis measurement of 7 mm compared with 9 mm. Just cephalad to this, a lymph node has a short axis measurement of 8 mm compared with 9 mm in the right paratracheal location. No new lymphadenopathy is seen. The augusto are unremarkable. No pericardial or pleural fluid is identified. No pulmonary nodules or masses are seen. No infiltrates are detected. CT abdomen and pelvis: No discrete liver mass is identified. The gallbladder is unremarkable. The pancreas and spleen are unremarkable. No adrenal mass is detected. Kidneys appear stable. There is a 5.2 cm cyst lower pole left kidney, stable. The aorta is non-aneurysmal. No central retroperitoneal lymphadenopathy is seen. No definite mesenteric lymphadenopathy is identified. The small and large bowel loops are normal caliber. No inguinal or iliac lymphadenopathy is detected. The bladder and prostate are unremarkable. IMPRESSION: 1. Slight decrease in size of right paratracheal lymph nodes when compared with the exam from 08/22/2017. No thoracic lymphadenopathy or pulmonary metastatic disease is identified. 2. Stable CT of the abdomen and pelvis. There is a left renal cyst. No abdominal or pelvic lymphadenopathy or evidence of metastatic disease is identified. Dictated by: Dictated on workstation # [id number]
--- NOTE | 2017-12-14 19:31 | Diagnostic Imaging Report ---
INDICATION: Malignant melanoma of the trunk. Patient was administered 29.7 mCi of technetium-99m pertechnetate labeled to the patient's red blood cells. Imaging over the chest was performed. FINDINGS: Left ventricular ejection fraction is calculated to be 53%. This compares with 53% on prior scan from 08/22/2017. IMPRESSION: Stable left ventricular ejection fraction of 53%. Dictated by: Dictated on workstation # [id number]
== END ==
LOC: RAD 12:20
PROVIDERS: ATTEND Nurse Practitioner Adult Health
DX: C43.59 Malignant melanoma of other part of trunk (principal); C79.89 Secondary malignant neoplasm of other specified sites; C78.7 Secondary malignant neoplasm of liver and intrahepatic bile duct; C77.8 Secondary and unspecified malignant neoplasm of lymph nodes of multiple regions
CPT/HCPCS: 71260; 74178; 78472

== ENCOUNTER 2017-12-19 13:22 | Outpatient (RCR) | payer MEDICAID ==
[2017-10-24 13:53] LABS: BASOPHILS % (AUTO) 1 % (0-10); EOSINOPHILS # (AUTO) 0.2 10^3/uL (0.0-0.3); EOSINOPHILS % (AUTO) 3 % (0-10); HEMATOCRIT 44 % (40-54); HEMOGLOBIN 15.1 G/DL (13.3-17.7); LYMPHOCYTES # (AUTO) 0.9 X 10^3 (1.0-4.0); LYMPHOCYTES % (AUTO) 15 % (12-44); MEAN CORPUSCULAR HEMOGLOBIN 33 PG (25-34); MEAN CORPUSCULAR HGB CONC 34 G/DL (32-36); MEAN CORPUSCULAR VOLUME 95 FL (80-99); MEAN PLATELET VOLUME 8.8 FL (7.4-10.4); MONOCYTES # (AUTO) 0.8 X 10^3 (0.0-1.0); MONOCYTES % (AUTO) 13 % (0-12); NEUTROPHILS # (AUTO) 4.3 X 10^3 (1.8-7.8); NEUTROPHILS % (AUTO) 69 % (42-75); PLATELET COUNT 268 10^3/uL (130-400); RED BLOOD COUNT 4.64 10^6/uL (4.35-5.85); RED CELL DISTRIBUTION WIDTH 12.7 % (10.0-14.5); WHITE BLOOD COUNT 6.2 10^3/uL (4.3-11.0)
[2017-10-24 14:23] LABS: ALBUMIN 3.9 GM/DL (3.2-4.5); BILIRUBIN,TOTAL 0.6 MG/DL (0.1-1.0); CALCIUM 9.3 MG/DL (8.5-10.1); CREATININE SERUM 1.33 MG/DL (0.60-1.30); POTASSIUM 5.1 MMOL/L (3.6-5.0); TOTAL PROTEIN 6.8 GM/DL (6.4-8.2)
[2017-12-12 15:14] LABS: BASOPHILS # (AUTO) 0.1 10^3/uL (0.0-0.1); BASOPHILS % (AUTO) 1 % (0-10); EOSINOPHILS # (AUTO) 0.3 10^3/uL (0.0-0.3); EOSINOPHILS % (AUTO) 3 % (0-10); HEMATOCRIT 45 % (40-54); HEMOGLOBIN 15.4 G/DL (13.3-17.7); LYMPHOCYTES # (AUTO) 1.6 X 10^3 (1.0-4.0); LYMPHOCYTES % (AUTO) 21 % (12-44); MEAN CORPUSCULAR HEMOGLOBIN 32 PG (25-34); MEAN CORPUSCULAR HGB CONC 34 G/DL (32-36); MEAN CORPUSCULAR VOLUME 93 FL (80-99); MONOCYTES # (AUTO) 0.8 X 10^3 (0.0-1.0); MONOCYTES % (AUTO) 10 % (0-12); NEUTROPHILS # (AUTO) 5.1 X 10^3 (1.8-7.8); NEUTROPHILS % (AUTO) 65 % (42-75); PLATELET COUNT 261 10^3/uL (130-400); RED CELL DISTRIBUTION WIDTH 12.7 % (10.0-14.5); WHITE BLOOD COUNT 7.8 10^3/uL (4.3-11.0)
[2017-12-12 15:36] LABS: ALBUMIN 4.2 GM/DL (3.2-4.5); BILIRUBIN,TOTAL 0.6 MG/DL (0.1-1.0); CALCIUM 10.2 MG/DL (8.5-10.1); CREATININE SERUM 1.38 MG/DL (0.60-1.30); POTASSIUM 5.2 MMOL/L (3.6-5.0); TOTAL PROTEIN 7.4 GM/DL (6.4-8.2)
[~2017-12-19 13:22] MED LIST changes: -BARIUM SUSPENSION 2.1% (VANILLA SILQ) 450 ML PO ONE; -HEParin (CENTRAL IV FLUSH) 500 UNIT/5 ML SYR ONE; -IOHEXOL 350 MG/ML 100 ML (OMNIPAQUE 350) VIAL IV ONE; -NS 250 ML (IVPB) BAG IV ONE
== END 2018-01-22 | disposition home or self-care (01) ==
LOC: ONC 13:22
PROVIDERS: ATTEND Internal Medicine Hematology & Oncology
DX: C43.59 Malignant melanoma of other part of trunk (principal); C78.7 Secondary malignant neoplasm of liver and intrahepatic bile duct; C77.8 Secondary and unspecified malignant neoplasm of lymph nodes of multiple regions; C79.89 Secondary malignant neoplasm of other specified sites; E11.22 Type 2 diabetes mellitus with diabetic chronic kidney disease; I12.9 Hypertensive chronic kidney disease with stage 1 through stage 4 chronic kidney disease, or unspecified chronic kidney disease; N18.3 Chronic kidney disease, stage 3 (moderate); Z79.82 Long term (current) use of aspirin; Z79.84 Long term (current) use of oral hypoglycemic drugs; Z79.899 Other long term (current) drug therapy; Z92.3 Personal history of irradiation
CPT/HCPCS: 36415; 80053; 83615; 85025; 99213

== ENCOUNTER 2018-04-10 14:07 | Outpatient (RCR) | payer MEDICAID ==
[2018-02-06 15:18] LABS: BASOPHILS # (AUTO) 0.1 10^3/uL (0.0-0.1); BASOPHILS % (AUTO) 1 % (0-10); EOSINOPHILS # (AUTO) 0.2 10^3/uL (0.0-0.3); EOSINOPHILS % (AUTO) 3 % (0-10); HEMATOCRIT 42 % (40-54); LYMPHOCYTES # (AUTO) 1.8 X 10^3 (1.0-4.0); LYMPHOCYTES % (AUTO) 20 % (12-44); MEAN CORPUSCULAR HEMOGLOBIN 33 PG (25-34); MEAN CORPUSCULAR HGB CONC 36 G/DL (32-36); MEAN CORPUSCULAR VOLUME 92 FL (80-99); MEAN PLATELET VOLUME 9.1 FL (7.4-10.4); MONOCYTES # (AUTO) 0.8 X 10^3 (0.0-1.0); MONOCYTES % (AUTO) 9 % (0-12); NEUTROPHILS # (AUTO) 6.3 X 10^3 (1.8-7.8); NEUTROPHILS % (AUTO) 69 % (42-75); PLATELET COUNT 271 10^3/uL (130-400); RED BLOOD COUNT 4.55 10^6/uL (4.35-5.85); RED CELL DISTRIBUTION WIDTH 12.6 % (10.0-14.5); WHITE BLOOD COUNT 9.2 10^3/uL (4.3-11.0)
[2018-02-06 15:41] LABS: ALBUMIN 4.2 GM/DL (3.2-4.5); BILIRUBIN,TOTAL 0.6 MG/DL (0.1-1.0); CALCIUM 10.3 MG/DL (8.5-10.1); CREATININE SERUM 1.25 MG/DL (0.60-1.30); POTASSIUM 4.8 MMOL/L (3.6-5.0); TOTAL PROTEIN 7.2 GM/DL (6.4-8.2)
[~2018-04-10 14:07] MED LIST changes: +METF-397 PO; -METF500T5 PO
[2018-04-10 14:43] LABS: BASOPHILS # (AUTO) 0.1 10^3/uL (0.0-0.1); BASOPHILS % (AUTO) 1 % (0-10); EOSINOPHILS # (AUTO) 0.2 10^3/uL (0.0-0.3); EOSINOPHILS % (AUTO) 2 % (0-10); HEMATOCRIT 42 % (40-54); HEMOGLOBIN 15.2 G/DL (13.3-17.7); LYMPHOCYTES # (AUTO) 1.6 X 10^3 (1.0-4.0); LYMPHOCYTES % (AUTO) 19 % (12-44); MEAN CORPUSCULAR HEMOGLOBIN 33 PG (25-34); MEAN CORPUSCULAR HGB CONC 36 G/DL (32-36); MEAN CORPUSCULAR VOLUME 92 FL (80-99); MEAN PLATELET VOLUME 9.1 FL (7.4-10.4); MONOCYTES # (AUTO) 0.5 X 10^3 (0.0-1.0); MONOCYTES % (AUTO) 6 % (0-12); NEUTROPHILS # (AUTO) 5.9 X 10^3 (1.8-7.8); NEUTROPHILS % (AUTO) 72 % (42-75); PLATELET COUNT 297 10^3/uL (130-400); RED CELL DISTRIBUTION WIDTH 12.9 % (10.0-14.5); WHITE BLOOD COUNT 8.2 10^3/uL (4.3-11.0)
[2018-04-10 15:03] LABS: ALBUMIN 4.2 GM/DL (3.2-4.5); BILIRUBIN,TOTAL 0.6 MG/DL (0.1-1.0); CALCIUM 10.4 MG/DL (8.5-10.1); CREATININE SERUM 1.3 MG/DL (0.60-1.30); TOTAL PROTEIN 7.4 GM/DL (6.4-8.2)
== END 2018-05-07 | disposition home or self-care (01) ==
LOC: ONC 14:07
PROVIDERS: ATTEND Internal Medicine Hematology & Oncology
DX: C43.59 Malignant melanoma of other part of trunk (principal); C78.7 Secondary malignant neoplasm of liver and intrahepatic bile duct; C77.8 Secondary and unspecified malignant neoplasm of lymph nodes of multiple regions; C79.89 Secondary malignant neoplasm of other specified sites; E11.22 Type 2 diabetes mellitus with diabetic chronic kidney disease; I12.9 Hypertensive chronic kidney disease with stage 1 through stage 4 chronic kidney disease, or unspecified chronic kidney disease; N18.3 Chronic kidney disease, stage 3 (moderate); Z79.82 Long term (current) use of aspirin; Z79.84 Long term (current) use of oral hypoglycemic drugs; Z79.899 Other long term (current) drug therapy; Z92.3 Personal history of irradiation
CPT/HCPCS: 36415; 80053; 83615; 85025; 99213

== ENCOUNTER → 2018-06-11 | Outpatient (CLI) | payer MEDICAID ==
[~2018-06-11] MED LIST changes: +BARIUM SUSPENSION 2.1% (VANILLA SILQ) 450 ML PO ONE; +CATHETER FLUSH 10 ML SYR IV PRN; +HEParin (CENTRAL IV FLUSH) 500 UNIT/5 ML SYR ONE; +IOHEXOL 350 MG/ML 100 ML (OMNIPAQUE 350) VIAL IV ONE; +NS 250 ML (IVPB) BAG IV ONE
--- NOTE | 2018-06-11 13:21 | Diagnostic Imaging Report ---
PROCEDURE: CT chest with contrast, CT abdomen and pelvis with and without contrast. TECHNIQUE: Pre and post intravenous contrast axial imaging of the abdomen and pelvis and post-contrast axial imaging of the chest were performed. INDICATION: Malignant melanoma. COMPARISON: Comparison is made with prior CT from 12/14/2017. CT CHEST: No axillary lymphadenopathy is seen. The lymph node at the level of the robert in a paratracheal location is stable at 7 mm. The most cephalad right paratracheal node appears to be slightly increased in size at 10 mm compared with 8 mm. A second node just inferior to this adjacent to the aortic arch measures approximately 8 mm compared with 6 mm. The augusto are unremarkable. No pericardial or pleural fluid is seen. No pulmonary parenchymal mass or infiltrate is identified. IMPRESSION: Slight increase in size of right paratracheal lymph nodes when compared to prior CT from 12/14/2017. CT ABDOMEN AND PELVIS: No discrete liver mass is identified. The gallbladder is unremarkable. The pancreas and spleen are unremarkable. No adrenal mass is detected. Low-density mass involving the left kidney appears to be stable at approximately 5 cm compared with 5.2 cm. The aorta is non-aneurysmal. No central retroperitoneal or mesenteric lymphadenopathy is identified. The small and large bowel loops are normal in caliber. The appendix is unremarkable. There is no ascites. The bladder and prostate are unremarkable. The bony structures are nonacute. IMPRESSION: Stable unremarkable CT of the abdomen and pelvis. There is no evidence of abdominal or pelvic lymphadenopathy or metastatic disease. Dictated by: Dictated on workstation # [id number]
--- NOTE | 2018-06-11 14:46 | Diagnostic Imaging Report ---
INDICATION: Malignant melanoma. TECHNIQUE: The patient was administered 30.2 mCi of technetium 99m pertechnetate labeled to the patient's red blood cells and imaging over the chest was performed. FINDINGS: The left ventricular ejection fraction is calculated to be 62%. This compares with 53% on the prior exam from 12/14/2017. IMPRESSION: The left ventricular ejection fraction is 62%. Dictated by: Dictated on workstation # [id number]
== END ==
LOC: RAD 12:00
PROVIDERS: ATTEND Nurse Practitioner Adult Health
DX: C43.59 Malignant melanoma of other part of trunk (principal); C77.8 Secondary and unspecified malignant neoplasm of lymph nodes of multiple regions; C78.7 Secondary malignant neoplasm of liver and intrahepatic bile duct; C79.89 Secondary malignant neoplasm of other specified sites
CPT/HCPCS: 71260; 74178; 78472

== ENCOUNTER → 2018-09-13 | Outpatient (CLI) | payer MEDICAID ==
[~2018-09-13] MED LIST changes: -CATHETER FLUSH 10 ML SYR IV PRN; -HEParin (CENTRAL IV FLUSH) 500 UNIT/5 ML SYR ONE; +IOHEXOL 350 MG/ML 150 ML (OMNIPAQUE 350) VIAL IV ONE; +NS 100 ML (IVPB) BAG IV ONE; -NS 250 ML (IVPB) BAG IV ONE; +RECEIVED CONTRAST (Hold Metformin) IV SCH
--- NOTE | 2018-09-13 13:05 | Diagnostic Imaging Report ---
PROCEDURE: CT chest, abdomen, and pelvis with contrast. TECHNIQUE: Multiple contiguous axial images were obtained through the chest, abdomen, and pelvis after the administration of intravenous contrast. INDICATION: Malignant melanoma. Comparison made with prior examination 06/11/2018. FINDINGS: There are no discrete pulmonary nodules, masses or infiltrates. No pleural or pericardial fluid. No pneumothorax. Heart size is normal. Note is again made of a mildly prominent right paratracheal lymph node. This measures 1.3 cm. This is slightly increased when compared to prior examination. There are mild degenerative changes in the spine. The liver is normal in size without focal lesions. Gallbladder is unremarkable. There is no biliary ductal dilatation. Spleen is normal. Pancreas and adrenal glands unremarkable. Note is again made of large left renal cyst. A few other tiny cysts in both kidneys. Aorta is nonaneurysmal. Bowel gas pattern is nonspecific. There is no free air. There is no ascites. There are no focal inflammatory changes. The appendix is unremarkable. Bladder is normal. There is no pelvic mass or adenopathy. There is mild degenerative change in the spine. IMPRESSION: Persistent slightly prominent right paratracheal lymph node measuring up to 1.3 cm. Large left renal cyst. No other acute abnormality in the chest, abdomen or pelvis. Dictated by: Dictated on workstation # [id number]
== END ==
LOC: RAD 10:21
PROVIDERS: ATTEND Internal Medicine Hematology & Oncology
DX: C43.59 Malignant melanoma of other part of trunk (principal); C79.89 Secondary malignant neoplasm of other specified sites; C77.8 Secondary and unspecified malignant neoplasm of lymph nodes of multiple regions; C78.7 Secondary malignant neoplasm of liver and intrahepatic bile duct; N28.1 Cyst of kidney, acquired
CPT/HCPCS: 71260; 74177

== ENCOUNTER 2018-09-18 12:37 | Outpatient (RCR) | payer MEDICAID ==
[2018-09-13 10:23] LABS: BASOPHILS # (AUTO) 0.1 10^3/uL (0.0-0.1); BASOPHILS % (AUTO) 1 % (0-10); EOSINOPHILS # (AUTO) 0.3 10^3/uL (0.0-0.3); EOSINOPHILS % (AUTO) 5 % (0-10); HEMATOCRIT 45 % (40-54); HEMOGLOBIN 14.9 G/DL (13.3-17.7); LYMPHOCYTES # (AUTO) 1.4 X 10^3 (1.0-4.0); LYMPHOCYTES % (AUTO) 26 % (12-44); MEAN CORPUSCULAR HEMOGLOBIN 31 PG (25-34); MEAN CORPUSCULAR HGB CONC 33 G/DL (32-36); MEAN CORPUSCULAR VOLUME 94 FL (80-99); MEAN PLATELET VOLUME 8.6 FL (7.4-10.4); MONOCYTES # (AUTO) 0.8 X 10^3 (0.0-1.0); MONOCYTES % (AUTO) 15 % (0-12); NEUTROPHILS # (AUTO) 2.7 X 10^3 (1.8-7.8); NEUTROPHILS % (AUTO) 52 % (42-75); PLATELET COUNT 253 10^3/uL (130-400); RED CELL DISTRIBUTION WIDTH 12.9 % (10.0-14.5); WHITE BLOOD COUNT 5.1 10^3/uL (4.3-11.0)
[2018-09-13 10:41] LABS: ALBUMIN 4.2 GM/DL (3.2-4.5); BILIRUBIN,TOTAL 0.5 MG/DL (0.1-1.0); CALCIUM 9.7 MG/DL (8.5-10.1); CREATININE SERUM 1.23 MG/DL (0.60-1.30); POTASSIUM 4.8 MMOL/L (3.6-5.0); TOTAL PROTEIN 7.3 GM/DL (6.4-8.2)
[~2018-09-18 12:37] MED LIST changes: -BARIUM SUSPENSION 2.1% (VANILLA SILQ) 450 ML PO ONE; -IOHEXOL 350 MG/ML 100 ML (OMNIPAQUE 350) VIAL IV ONE; -IOHEXOL 350 MG/ML 150 ML (OMNIPAQUE 350) VIAL IV ONE; -NS 100 ML (IVPB) BAG IV ONE; -RECEIVED CONTRAST (Hold Metformin) IV SCH
== END 2018-12-12 | disposition home or self-care (01) ==
LOC: ONC 12:37
PROVIDERS: ATTEND Internal Medicine Hematology & Oncology
DX: C43.59 Malignant melanoma of other part of trunk (principal); C77.8 Secondary and unspecified malignant neoplasm of lymph nodes of multiple regions; C78.7 Secondary malignant neoplasm of liver and intrahepatic bile duct; C79.89 Secondary malignant neoplasm of other specified sites; I12.9 Hypertensive chronic kidney disease with stage 1 through stage 4 chronic kidney disease, or unspecified chronic kidney disease; N18.3 Chronic kidney disease, stage 3 (moderate); Z79.82 Long term (current) use of aspirin; Z79.84 Long term (current) use of oral hypoglycemic drugs; Z79.899 Other long term (current) drug therapy; Z92.3 Personal history of irradiation
CPT/HCPCS: 36415; 80053; 83615; 85025; 99213

== ENCOUNTER → 2018-10-09 | Outpatient (CLI) | payer MEDICAID | LOC: RAD 09:23 | PROVIDERS: ATTEND Internal Medicine Hematology & Oncology | DX: C43.59 Malignant melanoma of other part of trunk (principal); C77.8 Secondary and unspecified malignant neoplasm of lymph nodes of multiple regions; C79.89 Secondary malignant neoplasm of other specified sites; Z53.8 Procedure and treatment not carried out for other reasons ==

== ENCOUNTER → 2019-06-17 | Outpatient (CLI) | payer MEDICARE, OTHER ==
[~2019-06-17] MED LIST changes: +BARIUM SUSPENSION 2.1% (VANILLA SILQ) 450 ML PO ONE; +HOLD METFORMIN - RECEIVED CONTRAST 20 ML VIAL IV SCH; +IOHEXOL 350 MG/ML 100 ML (OMNIPAQUE 350) VIAL IV ONE; +NS 100 ML (IVPB) BAG IV ONE
[2019-06-17] MEDS: CATHETER FLUSH 10 ML SYR IV PRN ×2 (12:09→12:59)
--- NOTE | 2019-06-17 13:50 | Diagnostic Imaging Report ---
PROCEDURE: CT chest and abdomen with contrast. TECHNIQUE: Multiple contiguous axial images were obtained through the chest and abdomen after the administration of intravenous contrast. Auto Exposure Controls were utilized during the CT exam to meet ALARA standards for radiation dose reduction. INDICATION: Melanoma. COMPARISON: Comparison made with prior examination 09/13/2018. FINDINGS: There are no discrete pulmonary nodules, masses or infiltrates. There is no pleural or pericardial fluid. There is no pneumothorax. Heart size is normal. Thoracic aorta is normal in caliber without evidence of dissection. There is no pathologically enlarged adenopathy in the chest. There is some fatty infiltration of liver. Gallbladder is unremarkable. There is no biliary ductal dilatation. There are no focal liver lesions. Spleen is normal. Pancreas and adrenal glands are unremarkable. There is a left renal cyst. Aorta is not aneurysmal. Bowel gas pattern is nonspecific. There is no free air. There is no ascites. There are no inflammatory changes. There are degenerative changes in the spine. IMPRESSION: 1. Left renal cyst. 2. Degenerative changes in the spine. 3. No other acute abnormality in the chest or abdomen. Specifically, there is no evidence of metastatic disease. Dictated by: Dictated on workstation # [id number]
--- NOTE | 2019-06-17 16:25 | Diagnostic Imaging Report ---
INDICATION: Melanoma. TECHNIQUE: Anterior and posterior whole-body planar images were obtained 3 hours after the administration of 25.6 mCi of technetium 99M MDP. FINDINGS: There is some increased uptake in the knees and shoulders bilaterally, presumably osteoarthritic. There is otherwise normal uptake of isotope throughout the axial and appendicular skeleton. There is physiologic uptake within the kidneys bilaterally with excretion into the urinary bladder. IMPRESSION: No evidence of osteoblastic metastatic disease. Dictated by: Dictated on workstation # [id number]
== END ==
LOC: CARD 11:52
PROVIDERS: ATTEND Internal Medicine Hematology & Oncology
DX: N28.1 Cyst of kidney, acquired (principal); M47.9 Spondylosis, unspecified; C43.59 Malignant melanoma of other part of trunk; C79.89 Secondary malignant neoplasm of other specified sites; C78.7 Secondary malignant neoplasm of liver and intrahepatic bile duct
CPT/HCPCS: 71260; 74160; 78306

== ENCOUNTER 2019-06-27 13:53 | Outpatient (RCR) | payer MEDICARE, MEDICAID, OTHER ==
[2019-06-04 14:37] LABS: BASOPHILS % (AUTO) 1 % (0-10); EOSINOPHILS # (AUTO) 0.3 10^3/uL (0.0-0.3); EOSINOPHILS % (AUTO) 4 % (0-10); HEMATOCRIT 45 % (40-54); HEMOGLOBIN 15.4 G/DL (13.3-17.7); LYMPHOCYTES # (AUTO) 1.3 X 10^3 (1.0-4.0); LYMPHOCYTES % (AUTO) 17 % (12-44); MEAN CORPUSCULAR HEMOGLOBIN 31 PG (25-34); MEAN CORPUSCULAR HGB CONC 34 G/DL (32-36); MEAN CORPUSCULAR VOLUME 92 FL (80-99); MEAN PLATELET VOLUME 9.7 FL (7.4-10.4); MONOCYTES # (AUTO) 0.6 X 10^3 (0.0-1.0); MONOCYTES % (AUTO) 8 % (0-12); NEUTROPHILS # (AUTO) 5.1 X 10^3 (1.8-7.8); NEUTROPHILS % (AUTO) 70 % (42-75); PLATELET COUNT 237 10^3/uL (130-400); RED CELL DISTRIBUTION WIDTH 12.8 % (10.0-14.5); WHITE BLOOD COUNT 7.4 10^3/uL (4.3-11.0)
[2019-06-04 15:06] LABS: BILIRUBIN,TOTAL 0.6 MG/DL (0.1-1.0); CALCIUM 9.8 MG/DL (8.5-10.1); CREATININE SERUM 1.44 MG/DL (0.60-1.30); POTASSIUM 5.3 MMOL/L (3.6-5.0); TOTAL PROTEIN 7.7 GM/DL (6.4-8.2)
[~2019-06-27 13:53] MED LIST changes: -BARIUM SUSPENSION 2.1% (VANILLA SILQ) 450 ML PO ONE; -HOLD METFORMIN - RECEIVED CONTRAST 20 ML VIAL IV SCH; -IOHEXOL 350 MG/ML 100 ML (OMNIPAQUE 350) VIAL IV ONE; -NS 100 ML (IVPB) BAG IV ONE; +NS IV 500 ML (CANCER CENTER) 500 ML ONE; -TRAM50TA2 PO; +TRM50T PO
== END 2019-09-02 | disposition home or self-care (01) ==
LOC: ONC 13:53
PROVIDERS: ATTEND Internal Medicine Hematology & Oncology
DX: C43.59 Malignant melanoma of other part of trunk (principal); C77.8 Secondary and unspecified malignant neoplasm of lymph nodes of multiple regions; C79.89 Secondary malignant neoplasm of other specified sites; C78.7 Secondary malignant neoplasm of liver and intrahepatic bile duct
CPT/HCPCS: 36415; 80053; 83615; 85025; 96360; 99213

== ENCOUNTER 2019-09-24 14:19 | Outpatient (RCR) | payer MEDICARE, MEDICAID, OTHER ==
[~2019-09-24 14:19] MED LIST changes: -NS IV 500 ML (CANCER CENTER) 500 ML ONE
[2019-09-24 14:35] LABS: BASOPHILS # (AUTO) 0.1 10^3/uL (0.0-0.1); BASOPHILS % (AUTO) 1 % (0-10); EOSINOPHILS # (AUTO) 0.3 10^3/uL (0.0-0.3); EOSINOPHILS % (AUTO) 3 % (0-10); HEMATOCRIT 45 % (40-54); HEMOGLOBIN 15.7 G/DL (13.3-17.7); LYMPHOCYTES # (AUTO) 1.2 X 10^3 (1.0-4.0); LYMPHOCYTES % (AUTO) 15 % (12-44); MEAN CORPUSCULAR HEMOGLOBIN 31 PG (25-34); MEAN CORPUSCULAR HGB CONC 35 G/DL (32-36); MEAN CORPUSCULAR VOLUME 90 FL (80-99); MEAN PLATELET VOLUME 9.3 FL (7.4-10.4); MONOCYTES # (AUTO) 0.7 X 10^3 (0.0-1.0); MONOCYTES % (AUTO) 8 % (0-12); NEUTROPHILS # (AUTO) 6.1 X 10^3 (1.8-7.8); NEUTROPHILS % (AUTO) 73 % (42-75); PLATELET COUNT 300 10^3/uL (130-400); RED CELL DISTRIBUTION WIDTH 12.7 % (10.0-14.5); WHITE BLOOD COUNT 8.3 10^3/uL (4.3-11.0)
[2019-09-24 14:53] LABS: ALANINE AMINOTRANSFERASE 21 U/L (0-55); ALKALINE PHOSPHATASE 87 U/L (40-136); BILIRUBIN,TOTAL 0.9 MG/DL (0.1-1.0); BUN/CREATININE RATIO 10; CALCIUM 9.9 MG/DL (8.5-10.1); CARBON DIOXIDE 26 MMOL/L (21-32); CHLORIDE 97 MMOL/L (98-107); GFR ESTIMATED > 60; GLUCOSE 324 MG/DL (70-105); POTASSIUM 4.4 MMOL/L (3.6-5.0); SODIUM 129 MMOL/L (135-145); TOTAL PROTEIN 7.4 GM/DL (6.4-8.2)
== END 2019-12-23 | disposition home or self-care (01) ==
LOC: ONC 14:19
PROVIDERS: ATTEND Internal Medicine Hematology & Oncology
DX: C43.59 Malignant melanoma of other part of trunk (principal); C77.8 Secondary and unspecified malignant neoplasm of lymph nodes of multiple regions; C79.89 Secondary malignant neoplasm of other specified sites; C78.7 Secondary malignant neoplasm of liver and intrahepatic bile duct; I12.9 Hypertensive chronic kidney disease with stage 1 through stage 4 chronic kidney disease, or unspecified chronic kidney disease; E11.9 Type 2 diabetes mellitus without complications; N18.3 Chronic kidney disease, stage 3 (moderate)
CPT/HCPCS: 80053; 83615; 85025; 99213

== ENCOUNTER → 2020-01-07 | Outpatient (CLI) | payer MEDICARE, MEDICAID, OTHER ==
[~2020-01-07] MED LIST changes: +HOLD METFORMIN - RECEIVED CONTRAST 20 ML VIAL IV SCH; +IOHEXOL 350 MG/ML 100 ML (OMNIPAQUE 350) VIAL IV ONE; +NS 100 ML (IVPB) BAG IV ONE
[2020-01-07] MEDS: CATHETER FLUSH 10 ML SYR IV PRN ×2 (11:39→12:51)
--- NOTE | 2020-01-07 13:14 | Diagnostic Imaging Report ---
EXAMINATION: CT Chest and Abdomen with intravenous contrast. TECHNIQUE: Multiple contiguous axial images were obtained through the chest and abdomen after the uneventful administration of intravenous contrast. All CT scans use one or more of the following dose optimizing techniques: automated exposure control, MA and/or KvP adjustment based on a patient size and exam type, or iterative reconstruction. HISTORY: Melanoma. COMPARISON: 06/17/2019. FINDINGS: There is no edema or pneumonia. No pleural effusion. No pneumothorax. No suspicious nodules. Heart size is normal. There are no coronary artery calcifications. No pericardial effusion. Aorta is normal in caliber. There is no axillary or supraclavicular lymphadenopathy. There is no mediastinal lymphadenopathy. The liver is normal without focal lesion. There is no biliary ductal dilation. Gallbladder is normal. Pancreas is normal. Spleen is normal. Adrenal glands are normal. Simple cysts are present in the kidneys. No suspicious renal lesions. There is no hydronephrosis. Visualized bowel is normal in caliber without obstruction or inflammation. No free fluid or air. No abdominal lymphadenopathy. Aorta is normal in caliber without aneurysm. There are no suspicious osseus lesions. IMPRESSION: 1. No metastatic disease seen in the chest or abdomen. Dictated by: Dictated on workstation # [id number]
--- NOTE | 2020-01-07 15:21 | Diagnostic Imaging Report ---
INDICATION: Melanoma. EXAMINATION: Whole body bone scan. TECHNIQUE: 27.1 mCi of technetium 99m MDP was given intravenously. A whole body bone scan was obtained after an appropriate delay. COMPARISON: 06/17/2019. FINDINGS: There appears to be normal uptake throughout the axial and appendicular skeleton. There is activity seen in the bladder and kidneys. IMPRESSION: There is no evidence of metastatic bone disease. Dictated by: Dictated on workstation # [id number]
== END ==
LOC: CARD 11:24
PROVIDERS: ATTEND Nurse Practitioner Adult Health
DX: Z01.89 Encounter for other specified special examinations (principal); C43.59 Malignant melanoma of other part of trunk; C77.8 Secondary and unspecified malignant neoplasm of lymph nodes of multiple regions; C79.89 Secondary malignant neoplasm of other specified sites; C78.7 Secondary malignant neoplasm of liver and intrahepatic bile duct
CPT/HCPCS: 71260; 74160; 78306

== ENCOUNTER 2020-01-27 13:17 | Outpatient (RCR) | payer MEDICARE, MEDICAID, OTHER ==
[2020-01-07 12:10] LABS: BASOPHILS % (AUTO) 1 % (0-10); EOSINOPHILS # (AUTO) 0.2 10^3/uL (0.0-0.3); EOSINOPHILS % (AUTO) 3 % (0-10); HEMATOCRIT 46 % (40-54); HEMOGLOBIN 15.9 G/DL (13.3-17.7); LYMPHOCYTES # (AUTO) 1.3 X 10^3 (1.0-4.0); LYMPHOCYTES % (AUTO) 20 % (12-44); MEAN CORPUSCULAR HEMOGLOBIN 32 PG (25-34); MEAN CORPUSCULAR HGB CONC 35 G/DL (32-36); MEAN CORPUSCULAR VOLUME 92 FL (80-99); MEAN PLATELET VOLUME 8.8 FL (7.4-10.4); MONOCYTES # (AUTO) 0.7 X 10^3 (0.0-1.0); MONOCYTES % (AUTO) 11 % (0-12); NEUTROPHILS # (AUTO) 4.3 X 10^3 (1.8-7.8); NEUTROPHILS % (AUTO) 66 % (42-75); PLATELET COUNT 300 10^3/uL (130-400); RED CELL DISTRIBUTION WIDTH 13.2 % (10.0-14.5); WHITE BLOOD COUNT 6.5 10^3/uL (4.3-11.0)
[2020-01-07 12:31] LABS: ALANINE AMINOTRANSFERASE 11 U/L (0-55); ALBUMIN 4.1 GM/DL (3.2-4.5); ALKALINE PHOSPHATASE 81 U/L (40-136); BILIRUBIN,TOTAL 0.7 MG/DL (0.1-1.0); BUN/CREATININE RATIO 11; CALCIUM 9.8 MG/DL (8.5-10.1); CARBON DIOXIDE 26 MMOL/L (21-32); CHLORIDE 103 MMOL/L (98-107); CREATININE SERUM 1.11 MG/DL (0.60-1.30); GFR ESTIMATED > 60; GLUCOSE 157 MG/DL (70-105); POTASSIUM 4.6 MMOL/L (3.6-5.0); SODIUM 137 MMOL/L (135-145); TOTAL PROTEIN 7.4 GM/DL (6.4-8.2)
[~2020-01-27 13:17] MED LIST changes: -HOLD METFORMIN - RECEIVED CONTRAST 20 ML VIAL IV SCH; -IOHEXOL 350 MG/ML 100 ML (OMNIPAQUE 350) VIAL IV ONE; -NS 100 ML (IVPB) BAG IV ONE
== END 2020-04-06 | disposition home or self-care (01) ==
LOC: ONC 13:17
PROVIDERS: ATTEND Internal Medicine Hematology & Oncology
DX: C43.59 Malignant melanoma of other part of trunk (principal); C77.8 Secondary and unspecified malignant neoplasm of lymph nodes of multiple regions; C79.89 Secondary malignant neoplasm of other specified sites; C78.7 Secondary malignant neoplasm of liver and intrahepatic bile duct; I12.9 Hypertensive chronic kidney disease with stage 1 through stage 4 chronic kidney disease, or unspecified chronic kidney disease; E11.22 Type 2 diabetes mellitus with diabetic chronic kidney disease; N18.3 Chronic kidney disease, stage 3 (moderate)
CPT/HCPCS: 80053; 83615; 85025; 99213

== ENCOUNTER 2020-07-20 11:48 | Outpatient (RCR) | payer MEDICARE, MEDICAID ==
[2020-04-28 14:03] LABS: BASOPHILS # (AUTO) 0.1 10^3/uL (0.0-0.1); BASOPHILS % (AUTO) 1 % (0-10); EOSINOPHILS # (AUTO) 0.3 10^3/uL (0.0-0.3); EOSINOPHILS % (AUTO) 5 % (0-10); HEMATOCRIT 46 % (40-54); HEMOGLOBIN 15.8 G/DL (13.3-17.7); LYMPHOCYTES # (AUTO) 1.3 X 10^3 (1.0-4.0); LYMPHOCYTES % (AUTO) 18 % (12-44); MEAN CORPUSCULAR HEMOGLOBIN 32 PG (25-34); MEAN CORPUSCULAR HGB CONC 34 G/DL (32-36); MEAN CORPUSCULAR VOLUME 93 FL (80-99); MEAN PLATELET VOLUME 8.7 FL (7.4-10.4); MONOCYTES # (AUTO) 0.8 X 10^3 (0.0-1.0); MONOCYTES % (AUTO) 12 % (0-12); NEUTROPHILS # (AUTO) 4.6 X 10^3 (1.8-7.8); NEUTROPHILS % (AUTO) 65 % (42-75); PLATELET COUNT 300 10^3/uL (130-400); WHITE BLOOD COUNT 7.2 10^3/uL (4.3-11.0)
[2020-04-28 14:04] LABS: SMEAR SCAN COMMENT YES
[2020-04-28 14:13] LABS: ALBUMIN 3.9 GM/DL (3.2-4.5)
[2020-04-28 14:14] LABS: POTASSIUM 4.4 MMOL/L (3.6-5.0)
[2020-04-28 14:15] LABS: CALCIUM 9.1 MG/DL (8.5-10.1)
[2020-04-28 14:16] LABS: TOTAL PROTEIN 6.9 GM/DL (6.4-8.2)
[2020-04-28 14:18] LABS: BILIRUBIN,TOTAL 0.6 MG/DL (0.1-1.0)
[2020-04-28 14:20] LABS: CREATININE SERUM 1.23 MG/DL (0.60-1.30)
[~2020-07-20 11:48] MED LIST changes: -CATHETER FLUSH 10 ML SYR IV PRN; -HOLD METFORMIN - RECEIVED CONTRAST 20 ML VIAL IV SCH; -IOHEXOL 350 MG/ML 100 ML (OMNIPAQUE 350) VIAL IV ONE; -NS 100 ML (IVPB) BAG IV ONE
[2020-07-20 12:17] LABS: BASOPHILS # (AUTO) 0.1 10^3/uL (0.0-0.1); BASOPHILS % (AUTO) 1 % (0-10); EOSINOPHILS # (AUTO) 0.3 10^3/uL (0.0-0.3); EOSINOPHILS % (AUTO) 5 % (0-10); HEMATOCRIT 50 % (40-54); HEMOGLOBIN 16.8 g/dL (13.3-17.7); LYMPHOCYTES # (AUTO) 1.3 10^3/uL (1.0-4.0); LYMPHOCYTES % (AUTO) 19 % (12-44); MEAN CORPUSCULAR HEMOGLOBIN 33 pg (25-34); MEAN CORPUSCULAR HGB CONC 34 g/dL (32-36); MEAN CORPUSCULAR VOLUME 97 fL (80-99); MEAN PLATELET VOLUME 8.8 fL (9.0-12.2); MONOCYTES # (AUTO) 0.7 10^3/uL (0.0-1.0); MONOCYTES % (AUTO) 10 % (0-12); NEUTROPHILS # (AUTO) 4.3 10^3/uL (1.8-7.8); NEUTROPHILS % (AUTO) 64 % (42-75); PLATELET COUNT 299 10^3/uL (130-400); WHITE BLOOD COUNT 6.8 10^3/uL (4.3-11.0)
[2020-07-20 12:31] LABS: ALBUMIN 4.1 GM/DL (3.2-4.5); BILIRUBIN,TOTAL 0.6 MG/DL (0.1-1.0); CALCIUM 9.2 MG/DL (8.5-10.1); CREATININE SERUM 1.39 MG/DL (0.60-1.30); POTASSIUM 4.6 MMOL/L (3.6-5.0); TOTAL PROTEIN 7.3 GM/DL (6.4-8.2)
== END 2020-07-27 | disposition home or self-care (01) ==
LOC: ONC 11:48
PROVIDERS: ATTEND Internal Medicine Hematology & Oncology
DX: C43.59 Malignant melanoma of other part of trunk (principal); C77.8 Secondary and unspecified malignant neoplasm of lymph nodes of multiple regions; C79.89 Secondary malignant neoplasm of other specified sites; C78.7 Secondary malignant neoplasm of liver and intrahepatic bile duct; I12.9 Hypertensive chronic kidney disease with stage 1 through stage 4 chronic kidney disease, or unspecified chronic kidney disease; E11.22 Type 2 diabetes mellitus with diabetic chronic kidney disease; N18.31 Chronic kidney disease, stage 3a
CPT/HCPCS: 80053; 83615; 85025; G0463; 99213

== ENCOUNTER → 2020-07-20 | Outpatient (CLI) | payer MEDICAID, MEDICARE, OTHER ==
[~2020-07-20] MED LIST changes: +CATHETER FLUSH 10 ML SYR IV PRN; +HOLD METFORMIN - RECEIVED CONTRAST 20 ML VIAL IV SCH; +IOHEXOL 350 MG/ML 100 ML (OMNIPAQUE 350) VIAL IV ONE; +NS 100 ML (IVPB) BAG IV ONE
[2020-07-20] MEDS: CATHETER FLUSH 10 ML SYR IV PRN ×2 (11:45→12:43)
--- NOTE | 2020-07-20 13:17 | Diagnostic Imaging Report ---
PROCEDURE: CT chest and abdomen with contrast. TECHNIQUE: Multiple contiguous axial images were obtained through the chest and abdomen after the administration of intravenous contrast. Auto Exposure Controls were utilized during the CT exam to meet ALARA standards for radiation dose reduction. INDICATION: Malignant melanoma. Correlation is made with prior CT from 01/07/2020. CT CHEST: No axillary lymphadenopathy is detected. No mediastinal or hilar lymphadenopathy is detected. There is no pericardial or pleural fluid. No pulmonary infiltrate, nodule or mass is detected. There is scarring or atelectasis in the lingula. CT ABDOMEN: No discrete liver mass is detected. Gallbladder is unremarkable. There is no biliary duct dilatation. Pancreas and spleen are unremarkable. No adrenal mass is detected. Left kidney contains a 5.5 cm cyst lower pole. Right kidney is unremarkable. Aorta is non-aneurysmal. No central retroperitoneal or mesenteric lymphadenopathy is detected. Bowel loops are normal caliber. There is moderate stool in the colon. Bony structures are nonacute. IMPRESSION: 1. No evidence of lymphadenopathy or metastatic disease in the abdomen or pelvis. Dictated by: Dictated on workstation # [id number]
--- NOTE | 2020-07-20 14:53 | Diagnostic Imaging Report ---
INDICATION: Malignant melanoma. TECHNIQUE: Patient was administered 26.9 mCi technetium 99m MDP intravenously and whole body imaging was performed after a three-hour delay. COMPARISON: Correlation is made with prior whole body bone scan from 01/07/2020. FINDINGS: There is uptake of activity by the axial and appendicular skeleton. There is uptake by the kidneys with excretion into the urinary bladder. No suspicious foci of tracer accumulation are seen to suggest osseous metastatic disease. IMPRESSION: No scintigraphic evidence of osseous metastatic disease. Dictated by: Dictated on workstation # [id number]
== END ==
LOC: CARD 11:20
PROVIDERS: ATTEND Nurse Practitioner Adult Health
DX: Z01.89 Encounter for other specified special examinations (principal); C43.59 Malignant melanoma of other part of trunk; C77.8 Secondary and unspecified malignant neoplasm of lymph nodes of multiple regions; C79.89 Secondary malignant neoplasm of other specified sites; C78.7 Secondary malignant neoplasm of liver and intrahepatic bile duct
CPT/HCPCS: 71260; 74160; 78306; A9503

== ENCOUNTER → 2020-07-23 | Outpatient (CLI) | payer MEDICAID, MEDICARE, OTHER ==
[~2020-07-23] MED LIST changes: +CATHETER FLUSH 10 ML SYR IV PRN; +HEParin (CENTRAL IV FLUSH) 500 UNIT/5 ML SYR ONE
--- NOTE | 2020-07-23 17:07 | Diagnostic Imaging Report ---
INDICATION: Hypertension. The patient was administered 31 mCi technetium 99m pertechnetate labeled to the red blood cells and imaging over the chest was performed. Correlation is made with prior MUGA scan from 06/11/2018. Left ventricular ejection fraction is calculated to be 52%. This compares with 62% on prior exam. IMPRESSION: Left ventricular ejection fraction of 52%. Dictated by: Dictated on workstation # [id number]
== END ==
LOC: CARD 14:00
PROVIDERS: ATTEND Nurse Practitioner Adult Health
DX: Z51.81 Encounter for therapeutic drug level monitoring (principal); I10 Essential (primary) hypertension; Z79.899 Other long term (current) drug therapy
CPT/HCPCS: 78472; A9560

== ENCOUNTER 2020-07-28 14:22 | Outpatient (RCR) | payer MEDICARE, MEDICAID ==
[~2020-07-28 14:22] MED LIST changes: -CATHETER FLUSH 10 ML SYR IV PRN; -HEParin (CENTRAL IV FLUSH) 500 UNIT/5 ML SYR ONE
== END 2020-10-26 | disposition home or self-care (01) ==
LOC: ONC 14:22
PROVIDERS: ATTEND Internal Medicine Hematology & Oncology
DX: Z51.11 Encounter for antineoplastic chemotherapy (principal); C43.59 Malignant melanoma of other part of trunk; C77.8 Secondary and unspecified malignant neoplasm of lymph nodes of multiple regions; C79.89 Secondary malignant neoplasm of other specified sites; C78.7 Secondary malignant neoplasm of liver and intrahepatic bile duct; I12.9 Hypertensive chronic kidney disease with stage 1 through stage 4 chronic kidney disease, or unspecified chronic kidney disease; E11.22 Type 2 diabetes mellitus with diabetic chronic kidney disease; N18.30 Chronic kidney disease, stage 3 unspecified
CPT/HCPCS: 99213

== ENCOUNTER → 2021-01-12 | Outpatient (CLI) | payer MEDICARE ==
[~2021-01-12] MED LIST changes: +CATHETER FLUSH 10 ML SYR IV PRN; +HOLD METFORMIN - RECEIVED CONTRAST 20 ML VIAL IV SCH; +IOHEXOL 350 MG/ML 100 ML (OMNIPAQUE 350) VIAL IV ONE; +NS 100 ML (IVPB) BAG IV ONE
--- NOTE | 2021-01-12 13:23 | Diagnostic Imaging Report ---
EXAMINATION: CT abdomen and pelvis with intravenous contrast. TECHNIQUE: Multiple contiguous axial images were obtained through the abdomen and pelvis after the uneventful administration of intravenous contrast. All CT scans use one or more of the following dose optimizing techniques: automated exposure control, MA and/or KvP adjustment based on patient size and exam type or iterative reconstruction. HISTORY: Melanoma. COMPARISON: 07/20/2020 FINDINGS: Limited views of the lower thorax are unremarkable. The liver is normal without focal lesion. There is no biliary ductal dilation. Gallbladder is normal. Pancreas is normal. Spleen is normal. Adrenal glands are normal. Simple cysts in the left kidney. No suspicious renal lesions. There is no hydronephrosis. Bladder is mildly distended and the prostate is enlarged, particularly the median lobe. Visualized bowel is normal in caliber without obstruction or inflammation. Incidental note is made of a single origin of the celiac and superior mesenteric arteries. No free fluid or air. No abdominal or pelvic lymphadenopathy. Aorta is normal in caliber without aneurysm. There are no suspicious osseous lesions. IMPRESSION: 1. No metastatic disease is seen in the abdomen or pelvis. Dictated by: Dictated on workstation # [id number]
--- NOTE | 2021-01-12 19:48 | Diagnostic Imaging Report ---
INDICATION: Cutaneous melanoma of the back. The patient received 27.3 mCi Tc 99 MDP intravenously. After 3 hours, whole-body planar imaging performed. FINDINGS: There is physiologic biodistribution of the radiopharmacy. There is no suspicious uptake in the axial or appendicular skeleton. There were no scintigraphic findings suggestive of bone scan evidence for osseous metastasis. IMPRESSION: Unremarkable whole body bone scan. Dictated by: Dictated on workstation # [id number]
== END ==
LOC: CARD 11:15
PROVIDERS: ATTEND Nurse Practitioner Adult Health
DX: C43.59 Malignant melanoma of other part of trunk (principal); C79.89 Secondary malignant neoplasm of other specified sites; C78.7 Secondary malignant neoplasm of liver and intrahepatic bile duct; C77.9 Secondary and unspecified malignant neoplasm of lymph node, unspecified
CPT/HCPCS: 74177; 78306; A9503

== ENCOUNTER 2021-01-14 14:32 | Outpatient (RCR) | payer MEDICARE ==
[2020-10-27 14:34] LABS: BASOPHILS # (AUTO) 0.1 10^3/uL (0.0-0.1); BASOPHILS % (AUTO) 1 % (0-10); EOSINOPHILS # (AUTO) 0.3 10^3/uL (0.0-0.3); EOSINOPHILS % (AUTO) 3 % (0-10); HEMATOCRIT 52 % (40-54); HEMOGLOBIN 17.1 g/dL (13.3-17.7); LYMPHOCYTES # (AUTO) 1.8 10^3/uL (1.0-4.0); LYMPHOCYTES % (AUTO) 23 % (12-44); MEAN CORPUSCULAR HEMOGLOBIN 32 pg (25-34); MEAN CORPUSCULAR HGB CONC 33 g/dL (32-36); MEAN CORPUSCULAR VOLUME 97 fL (80-99); MEAN PLATELET VOLUME 8.8 fL (9.0-12.2); MONOCYTES # (AUTO) 0.7 10^3/uL (0.0-1.0); MONOCYTES % (AUTO) 9 % (0-12); NEUTROPHILS # (AUTO) 4.7 10^3/uL (1.8-7.8); NEUTROPHILS % (AUTO) 62 % (42-75); PLATELET COUNT 281 10^3/uL (130-400); WHITE BLOOD COUNT 7.6 10^3/uL (4.3-11.0)
[2020-10-27 14:54] LABS: ALBUMIN 4.2 GM/DL (3.2-4.5); BILIRUBIN,TOTAL 0.5 MG/DL (0.1-1.0); CALCIUM 9.4 MG/DL (8.5-10.1); CREATININE SERUM 1.22 MG/DL (0.60-1.30); POTASSIUM 4.5 MMOL/L (3.6-5.0); TOTAL PROTEIN 7.5 GM/DL (6.4-8.2)
[2021-01-12 11:15] LABS: BASOPHILS # (AUTO) 0.1 10^3/uL (0.0-0.1); BASOPHILS % (AUTO) 1 % (0-10); EOSINOPHILS # (AUTO) 0.3 10^3/uL (0.0-0.3); EOSINOPHILS % (AUTO) 4 % (0-10); HEMATOCRIT 54 % (40-54); HEMOGLOBIN 17.7 g/dL (13.3-17.7); LYMPHOCYTES # (AUTO) 1.9 10^3/uL (1.0-4.0); LYMPHOCYTES % (AUTO) 25 % (12-44); MEAN CORPUSCULAR HEMOGLOBIN 32 pg (25-34); MEAN CORPUSCULAR HGB CONC 33 g/dL (32-36); MEAN CORPUSCULAR VOLUME 97 fL (80-99); MEAN PLATELET VOLUME 9.2 fL (9.0-12.2); MONOCYTES # (AUTO) 0.7 10^3/uL (0.0-1.0); MONOCYTES % (AUTO) 10 % (0-12); NEUTROPHILS # (AUTO) 4.5 10^3/uL (1.8-7.8); NEUTROPHILS % (AUTO) 60 % (42-75); PLATELET COUNT 260 10^3/uL (130-400); WHITE BLOOD COUNT 7.6 10^3/uL (4.3-11.0)
[2021-01-12 11:41] LABS: ALBUMIN 3.9 GM/DL (3.2-4.5); BILIRUBIN,TOTAL 0.4 MG/DL (0.1-1.0); CALCIUM 9.5 MG/DL (8.5-10.1); CREATININE SERUM 1.4 MG/DL (0.60-1.30); POTASSIUM 4.6 MMOL/L (3.6-5.0); TOTAL PROTEIN 7.3 GM/DL (6.4-8.2)
[~2021-01-14 14:32] MED LIST changes: -CATHETER FLUSH 10 ML SYR IV PRN; -HOLD METFORMIN - RECEIVED CONTRAST 20 ML VIAL IV SCH; -IOHEXOL 350 MG/ML 100 ML (OMNIPAQUE 350) VIAL IV ONE; -NS 100 ML (IVPB) BAG IV ONE
== END 2021-01-25 | disposition home or self-care (01) ==
LOC: ONC 14:32
PROVIDERS: ATTEND Internal Medicine Hematology & Oncology
DX: C43.59 Malignant melanoma of other part of trunk (principal); C79.89 Secondary malignant neoplasm of other specified sites; C78.7 Secondary malignant neoplasm of liver and intrahepatic bile duct; C77.8 Secondary and unspecified malignant neoplasm of lymph nodes of multiple regions; E11.22 Type 2 diabetes mellitus with diabetic chronic kidney disease; I12.9 Hypertensive chronic kidney disease with stage 1 through stage 4 chronic kidney disease, or unspecified chronic kidney disease; N18.30 Chronic kidney disease, stage 3 unspecified
CPT/HCPCS: 80053 ×2; 83615 ×2; 85025 ×2; G0463; 99213

== ENCOUNTER → 2021-07-23 | Outpatient (CLI) | payer MEDICARE ==
[~2021-07-23] MED LIST changes: +BARIUM SUSPENSION 2.1% (VANILLA SILQ) 450 ML PO ONE; +CATHETER FLUSH 10 ML SYR IV PRN; +HOLD METFORMIN - RECEIVED CONTRAST 20 ML VIAL IV SCH; +IOHEXOL 350 MG/ML 100 ML (OMNIPAQUE 350) VIAL IV ONE; +NS 100 ML (IVPB) BAG IV ONE
[2021-07-23] MEDS: CATHETER FLUSH 10 ML SYR IV PRN ×2 (12:03→12:08)
--- NOTE | 2021-07-26 09:11 | Diagnostic Imaging Report ---
Indication: Malignant neoplasm, cutaneous melanoma of the back After intravenous administration of 24.1 mCi technetium 99m medronate, three-hour delayed whole body anterior and posterior scintigraphic imaging was performed. There is a normal distribution of activity throughout the visualized portions of the body. No area of abnormal increased or decreased uptake is seen to indicate metastatic disease. There is excretion of activity from both kidneys with reticulation in the bladder. IMPRESSION: Stable unremarkable whole body bone scan. Dictated by: Dictated on workstation # [id number]
--- NOTE | 2021-07-26 10:16 | Diagnostic Imaging Report ---
EXAMINATION: CT chest with intravenous contrast, CT abdomen and pelvis without and with intravenous contrast. TECHNIQUE: Pre and post intravenous contrast axial imaging of the abdomen and pelvis and post contrast axial imaging of the chest were performed. All CT scans use one or more of the following dose optimizing techniques: automated exposure control, MA and/or KvP adjustment based on patient size and exam type or iterative reconstruction. HISTORY: Right upper quadrant pain COMPARISON: 01/12/2021 FINDINGS: There is no edema or pneumonia. No pleural effusion. No pneumothorax. No suspicious nodules. There is no axillary or supraclavicular lymphadenopathy. There is no mediastinal lymphadenopathy. Heart size is normal. There are mild coronary artery calcifications. No pericardial effusion. Aorta is normal in caliber. The liver is normal without focal lesion. There is no biliary ductal dilation. Gallbladder is normal. Pancreas is normal. Spleen is normal. Adrenal glands are normal. The kidneys are normal. There is no hydronephrosis. Urinary bladder is normal. There is an unchanged 5 mm distal left ureteral stone without evidence of obstruction. It is unchanged from 06/11/2018. Visualized bowel is normal in caliber without obstruction or inflammation. No free fluid or air. No abdominal or pelvic lymphadenopathy. Aorta is normal in caliber without aneurysm. There are no suspicious osseus lesions. IMPRESSION: 1. No acute abnormality in the chest, abdomen or pelvis. Dictated by: Dictated on workstation # [id number]
== END ==
LOC: CARD 12:00
PROVIDERS: ATTEND Nurse Practitioner Adult Health
DX: C43.59 Malignant melanoma of other part of trunk (principal); C79.89 Secondary malignant neoplasm of other specified sites; C78.7 Secondary malignant neoplasm of liver and intrahepatic bile duct; C77.9 Secondary and unspecified malignant neoplasm of lymph node, unspecified
CPT/HCPCS: 71260; 74178; 78306; A9503

== ENCOUNTER → 2021-07-27 | Outpatient (RCR) | payer MEDICARE ==
[2021-04-28 14:22] LABS: BASOPHILS # (AUTO) 0.1 10^3/uL (0.0-0.1); BASOPHILS % (AUTO) 1 % (0-10); EOSINOPHILS # (AUTO) 0.3 10^3/uL (0.0-0.3); EOSINOPHILS % (AUTO) 3 % (0-10); HEMATOCRIT 52 % (40-54); HEMOGLOBIN 17.2 g/dL (13.3-17.7); LYMPHOCYTES % (AUTO) 24 % (12-44); MEAN CORPUSCULAR HEMOGLOBIN 32 pg (25-34); MEAN CORPUSCULAR HGB CONC 33 g/dL (32-36); MEAN CORPUSCULAR VOLUME 95 fL (80-99); MEAN PLATELET VOLUME 9.3 fL (9.0-12.2); MONOCYTES # (AUTO) 0.7 10^3/uL (0.0-1.0); MONOCYTES % (AUTO) 9 % (0-12); NEUTROPHILS # (AUTO) 5.2 10^3/uL (1.8-7.8); NEUTROPHILS % (AUTO) 62 % (42-75); PLATELET COUNT 329 10^3/uL (130-400); WHITE BLOOD COUNT 8.3 10^3/uL (4.3-11.0)
[2021-04-28 14:42] LABS: ALBUMIN 4.3 GM/DL (3.2-4.5); BILIRUBIN,TOTAL 0.6 MG/DL (0.1-1.0); CALCIUM 10.8 MG/DL (8.5-10.1); CREATININE SERUM 1.45 MG/DL (0.60-1.30); POTASSIUM 4.5 MMOL/L (3.6-5.0); TOTAL PROTEIN 7.8 GM/DL (6.4-8.2)
[2021-07-23 10:38] LABS: BASOPHILS # (AUTO) 0.1 10^3/uL (0.0-0.1); BASOPHILS % (AUTO) 1 % (0-10); EOSINOPHILS # (AUTO) 0.3 10^3/uL (0.0-0.3); EOSINOPHILS % (AUTO) 3 % (0-10); HEMATOCRIT 50 % (40-54); HEMOGLOBIN 16.9 g/dL (13.3-17.7); LYMPHOCYTES # (AUTO) 2.3 10^3/uL (1.0-4.0); LYMPHOCYTES % (AUTO) 24 % (12-44); MEAN CORPUSCULAR HEMOGLOBIN 31 pg (25-34); MEAN CORPUSCULAR HGB CONC 34 g/dL (32-36); MEAN CORPUSCULAR VOLUME 93 fL (80-99); MEAN PLATELET VOLUME 9.4 fL (9.0-12.2); MONOCYTES % (AUTO) 11 % (0-12); NEUTROPHILS # (AUTO) 5.8 10^3/uL (1.8-7.8); NEUTROPHILS % (AUTO) 61 % (42-75); PLATELET COUNT 283 10^3/uL (130-400); WHITE BLOOD COUNT 9.5 10^3/uL (4.3-11.0)
[2021-07-23 10:56] LABS: ALBUMIN 4.1 GM/DL (3.2-4.5); BILIRUBIN,TOTAL 0.6 MG/DL (0.1-1.0); CALCIUM 10.5 MG/DL (8.5-10.1); CREATININE SERUM 1.57 MG/DL (0.60-1.30); POTASSIUM 4.2 MMOL/L (3.6-5.0); TOTAL PROTEIN 7.7 GM/DL (6.4-8.2)
[~2021-07-27] MED LIST changes: -BARIUM SUSPENSION 2.1% (VANILLA SILQ) 450 ML PO ONE; -CATHETER FLUSH 10 ML SYR IV PRN; -HOLD METFORMIN - RECEIVED CONTRAST 20 ML VIAL IV SCH; -IOHEXOL 350 MG/ML 100 ML (OMNIPAQUE 350) VIAL IV ONE; -NS 100 ML (IVPB) BAG IV ONE
== END | disposition home or self-care (01) ==
LOC: ONC 04-28 14:07
PROVIDERS: ATTEND Internal Medicine Hematology & Oncology
DX: C43.59 Malignant melanoma of other part of trunk (principal); C78.7 Secondary malignant neoplasm of liver and intrahepatic bile duct; C79.89 Secondary malignant neoplasm of other specified sites; C77.8 Secondary and unspecified malignant neoplasm of lymph nodes of multiple regions; E11.22 Type 2 diabetes mellitus with diabetic chronic kidney disease; I12.9 Hypertensive chronic kidney disease with stage 1 through stage 4 chronic kidney disease, or unspecified chronic kidney disease; N18.30 Chronic kidney disease, stage 3 unspecified; Z98.890 Other specified postprocedural states
CPT/HCPCS: 80053; 83615; 85025; G0463; 99213